=== PATIENT | female | born 1970 | race Caucasian/White ===

== ENCOUNTER → 2019-07-24 11:20 | Outpatient (BNVA) | payer OTHER, SELFPAY | PROVIDERS: Family Provider Family Medicine; PCP Family Medicine; Visit Provider Nurse Practitioner | DX: R05 Cough (principal); R06.02 Shortness of breath | CPT/HCPCS: 71046 ==

== ENCOUNTER → 2019-08-04 13:34 | Outpatient (BNVA) | payer OTHER, SELFPAY | PROVIDERS: Family Provider Family Medicine; PCP Family Medicine; Referring Provider Family Medicine; Visit Provider Family Medicine | DX: J44.1 Chronic obstructive pulmonary disease with (acute) exacerbation (principal) | CPT/HCPCS: 87804 ==

== ENCOUNTER 2019-08-06 07:59 | Emergency (ER) | payer OTHER, SELFPAY ==
[2019-08-06] VITALS (9 sets, daily range): BP systolic 129–142; BP diastolic 74–85; PULSE 72–96; RESP 16–29; TEMP 36.4–36.8; O2SAT 91–94; BMI 39.8
--- NOTE | 2019-08-06 08:19 | XRR_ITS ---
PROCEDURE INFORMATION: Exam: XR Chest, 1 View Exam date and time: 08/06/2019 8:22 AM Age: 49 years old Clinical indication: Shortness of breath; Additional info: Cough, chest pain TECHNIQUE: Imaging protocol: XR of the chest Views: 1 view. COMPARISON: CR XR chest 2V insp/exp [id number] 07/24/2019 11:36 AM FINDINGS: Lung volumes are relatively low. There again appears to be mild thickening of bilateral perihilar markings, nonspecific, could indicate inflammation/infection. No significant obscuration of the lateral costophrenic angles is demonstrated. Visualized cardiac silhouette size appears within normal limits. XR/XR chest 1V portable [id number] IMPRESSION: There again appears to be mild thickening of bilateral perihilar markings, nonspecific, could indicate inflammation/infection.
--- NOTE | 2019-08-06 08:21 | ECG_ITS ---
Measurements Intervals [place] Rate: 81 P: 49 MO: 144 QRS: 16 QRSD: 89 T: 62 QT: 376 QTc: 437 SINUS RHYTHM WARNING: DATA QUALITY MAY AFFECT INTERPRETATION Compared to ECG 03/24/2019 12:42:08 Myocardial infarct finding no longer present Electronically Signed On 08-06-2019 11:29:08 VP CLIENT SERVICES by Sterling Trammell M.D. [id number]
--- NOTE | 2019-08-06 08:24 | ED_ITS ---
HPI - SOB/Dyspnea General: Chief Complaint: Shortness of Breath/Dyspnea Stated Complaint: left lung pain Time Seen by Provider: 08/06/19 08:12 Source: patient Mode of arrival: ambulatory Limitations: no limitations History of Present Illness: HPI Narrative: Patient comes in today with complaints of cough congestion for the last 2 weeks. Patient has just completed a round of Levaquin. Patient has also been given 2 doses of dexamethasone IM. Patient does have a history of COPD and previous pain with lung discomfort where she was diagnosed with pleurisy and pneumonia. Patient reports the pain is on her left rib area. Patient appears mildly unwell. Patient does appear in moderate pain. Patient reports not taking the prednisone p.o. due to stomach discomfort, and lack of appetite. Patient does use Spiriva routinely but was only started yesterday on the medication. Patient does not routinely use nebulizer machine or inhalers. Associated symptoms: Reports chest congestion Review of Systems General: Reports: 10 or more systems reviewed and unremarkable except in HPI and below Resp: Reports: shortness of breath (with painful respirations) and chest c ongestion FORMERLY [facility], 1928–1983 ED PFSH: Statuses (acute, chronic, etc) shown below reflect problem list status as previously entered and may not be historically accurate Medical History (Updated 08/06/19 @ 10:09 by JONES Falcon) Depression with anxiety (Acute) Social History (Updated 08/04/19 @ 11:58 by Pilar Durant LPN) Smoking and tobacco status: current every day smoker Alcohol intake: never Physical Exam Const: COMMON NORMALS: no apparent distress and oriented x3 GENERAL APPEARANCE: cooperative HENMT: COMMON NORMALS: normocephalic, external ears normal, EAC's normal, TM's normal bilaterally and external nose normal HEAD & SCALP: normal to inspection and normocephalic FACE & SINUS: normal facial exam NOSE: external nose normal GENERAL EAR: hearing not grossly impaired EXTERNAL EAR: Yes external ears normal EXTERNAL AUDITORY CANAL: EAC's normal TYMPANIC MEMBRANE: TM's normal bilaterally MOUTH: oral and palatal mucosa normal THROAT: posterior oropharynx normal Eye: COMMON NORMALS: PERRL and EOMs intact bilaterally PUPIL: Yes PERRL Neck/C-Spine: COMMON NORMALS: full ROM and no lymphadenopathy Lymph: LYMPHATIC: no lymphedema noted Chest: COMMONS NORMALS: inspection of chest normal and palpation of chest normal Resp: EFFORT & INSPECTION: Yes able to speak in complete sentences, Yes tachypneic, No respiratory distress and No tracheal deviation AUSCULTATION: wheezes and rub present (left posterior) Cardio: COMMON NORMALS: regular rate and regular rhythm RATE: regular rate RHYTHM: regular rhythm GI: COMMON NORMALS: normal to inspection, nondistended, normoactive bowel sounds and non-tender : COMMON NORMALS: Yes no CVA tenderness BLADDER/KIDNEY EXAM: Yes no CVA tenderness Back/Pelvis: COMMON NORMALS: no CVA tenderness and thoracic and lumbar spine normal to inspection Extremity: COMMON NORMALS: normal to inspection GENERAL: No edema Neuro: COMMON NORMALS: oriented x3, moves all extremities and no focal motor deficits Psych: COMMON NORMALS: mental status grossly normal and cooperative Skin: COMMON NORMALS: no rashes or lesions noted GENERAL SKIN EXAM: no rashes or lesions noted Course ED course: 910, patient pain improved some, patient continues to be guarded with movement, d dimer was mildly elevated reviewed with patient and recommended CTA due to patient increased pain, patient agree to evaluation. wjw Vital Signs: Vital signs: Vital Signs Temperature 97.6 F 08/06/19 08:08 Pulse Rate 73 08/06/19 09:00 Respiratory Rate 26 H 08/06/19 09:58 Blood Pressure 142/85 08/06/19 08:08 Pulse Oximetry 93 08/06/19 09:00 MDM - SOB/Dyspnea MDM Narrative: Medical decision making narrative: Patient comes in today for complaints of left chest wall pain. Patient reports history of previous pneumonia and pleurisy in the past. Patient had been treated over the last 2 weeks with Levaquin and a steroid with continuation of cough and congestion. Patient reports that no improvement was noted in the chest wall pain in fact of the last 2 days it seems worse. Patient has not been taking the steroid as prescribed due to nausea. Exam notes a pleural rub in the left posterior area of the lung. Lungs are wheezing throughout. Heart rates regular. No edema in the lower extremities. Vital signs are stable. Differential diagnosis includes pneumonia, PE, bronchitis, COPD, asthma. Chest x-ray noted some bronchial thickening but no specific consolidation and no significant change analyst the last week. Laboratory values were normal except for mild elevation in d-dimer. Due to the elevation d-dimer and chest pain CTA was ordered it showed some lymph nodes and bronchial inflammation. Patient was treated in the ER with steroids, IV fluids, and nebulizer treatment. Patient was also given medication for pain. Patient had some improvement with overall symptoms and oxygen did stay above 92%. Reviewed plan with patient to continue on oral steroids at a higher dose o f 20 mg twice a day for the next 4 days and then decrease it to 20 mg daily for 4 days and then 10 mg daily for 4 days. Patient was recommended to take doxycycline to cover for mycoplasma type infections that may not of been covered as well with the Levaquin. Patient was also given medication for pain and an albuterol inhaler for wheezing. Patient reported understanding of care plan and need for follow-up or return as needed. Lab Data: Labs: Lab Results 08/06/19 08/06/19 08/06/19 Range/Units 08:23 08:23 08:23 WBC 8.0 (4.0-10.0) 10^3/ uL RBC 5.21 (4.1-5.3) 10^6/u L Hgb 15.1 (11.5-15.3) g/dL Hct 45.8 (37.0-47.0) % MCV 87.9 (81-99) fL MCH 29.0 (28.0-34.0) pg MCHC 33.0 (30.0-36.0) g/dL RDW 13.4 (12.1-15.1) % Plt Count 232 (130-400) 10^3/c mm MPV 9.4 (7.4-10.4) fL Neut % (Auto) 66.0 % Lymph % (Auto) 27.3 % Dixie % (Auto) 6.1 % Eos % (Auto) 0.2 % Baso % (Auto) 0.2 % Neut # (Auto) 5.3 (1.8-7.7) 10^3/u L Lymph # (Auto) 2.2 (0.8-4.8) 10^3/u L Dixie # (Auto) 0.5 (0.2-0.9) 10^3/u L Eos # (Auto) 0.0 (0.0-0.8) 10^3/u L Baso # (Auto) 0.0 (0.0-0.1) 10^3/u L Nucleated RBC % (a uto) 0 % Nucleated RBCs # 0.0 /100WBC D-Dimer 0.68 H (0-0.59) ug/mIFE U Specimen Type Sample Site ABG pH (7.35-7.45) ABG pCO2 (35-45) mmHg ABG pO2 (80.0-100.0) mmH g ABG HCO3 (22-26) mmol/L ABG Base Excess (-2.0-2.0) mmol/ L Ady Test Hematocrit (37-47) % Pipeline Integrity Engineer ID Sodium 141 (136-145) mmol/L Potassium 3.2 L (3.5-5.1) mmol/L Chloride 100 (98-107) mmol/L Carbon Dioxide 27 (22-29) mmol/L Anion Gap 17.2 (5-19) BUN 12 (6-20) mg/dL Creatinine 0.7 (0.5-0.9) mg/dL GFR Calculation 88.2 L (90-130) mL/min Glucose 116 H (74-109) mg/dL Lactic Acid (0.5-2.2) mmol/L Calcium 9.8 (8.6-10.0) mg/Dl Total Bilirubin 0.4 (0.15-1.2) mg/dL AST 24 (0-32) U/L ALT 32 (0-33) U/L Alkaline Phosphata se 101 (35-105) IU/L Troponin T Baselin e (0-10) ng/mL Total Protein 7.3 (6.6-8.7) g/dL Albumin 4.5 (3.5-5.2) g/dL Globulin 2.8 (1.3-4.6) g/dL 08/06/19 08/06/19 08/06/19 Range/Units 08:23 08:23 09:00 WBC (4.0-10.0) 10^3/ uL RBC (4.1-5.3) 10^6/u L Hgb (11.5-15.3) g/dL Hct (37.0-47.0) % MCV (81-99) fL MCH (28.0-34.0) pg MCHC (30.0-36.0) g/dL RDW (12.1-15.1) % Plt Count (130-400) 10^3/c mm MPV (7.4-10.4) fL Neut % (Auto) % Lymph % (Auto) % Dixie % (Auto) % Eos % (Auto) % Baso % (Auto) % Neut # (Auto) (1.8-7.7) 10^3/u L Lymph # (Auto) (0.8-4.8) 10^3/u L Dixie # (Auto) (0.2-0.9) 10^3/u L Eos # (Auto) (0.0-0.8) 10^3/u L Baso # (Auto) (0.0-0.1) 10^3/u L Nucleated RBC % (a uto) % Nucleated RBCs # /100WBC D-Dimer (0-0.59) ug/mIFE U Specimen Type Arterial Sample Site Radial, left ABG pH 7.49 H (7.35-7.45) ABG pCO2 34.1 L (35-45) mmHg ABG pO2 50.5 L (80.0-100.0) mmH g ABG HCO3 25.8 (22-26) mmol/L ABG Base Excess 2.9 H (-2.0-2.0) mmol/ L Ady Test Pos Hematocrit 46.7 (37-47) % Pipeline Integrity Engineer ID jmn Sodium (136-145) mmol/L Potassium (3.5-5.1) mmol/L Chloride (98-107) mmol/L Carbon Dioxide (22-29) mmol/L Anion Gap (5-19) BUN (6-20) mg/dL Creatinine (0.5-0.9) mg/dL GFR Calculation (90-130) mL/min Glucose (74-109) mg/dL Lactic Acid 2.0 (0.5-2.2) mmol/L Calcium (8.6-10.0) mg/Dl Total Bilirubin (0.15-1.2) mg/dL AST (0-32) U/L ALT (0-33) U/L Alkaline Phosphata se (35-105) IU/L Troponin T Baselin e 9 (0-10) ng/mL Total Protein (6.6-8.7) g/dL Albumin (3.5-5.2) g/dL Globulin (1.3-4.6) g/dL EKG Data^: EKG 1: Attestation: I personally reviewed and interpreted this EKG as follows: (0835, Sinus rhythm, artifact present, no ectopy, no ST elevation, rate regular @ 80 bpm. wjw) EKG 2: Attestation: I personally reviewed and interpreted this EKG as follows: (1015, NSR, good tracing, rate 81 bpm and regular, no ectopy or ST elevation. wjw) Discharge Plan Discharge Patient Disposition: Home, Self-Care Clinical Impression: Pleurisy Condition: Stable Prescriptions: New doxycycline hyclate 100 mg capsule 100 mg PO BID 10 Days Qty: 20 RF: 0 hydrocodone-acetaminophen 5-325 mg tablet 1 tab PO Q6H PRN (Reason: pain) Qty: 12 RF: 0 prednisone 20 mg tablet 20 mg PO DAILY Qty: 14 RF: 0 albuterol sulfate 90 mcg/actuation HFA aerosol inhaler 2 inh INHALATION Q4H PRN (Reason: shortness of breath or wheezing) Qty: 8.5 RF: 0 ondansetron HCl 4 mg tablet 4 mg PO Q8H PRN (Reason: nausea and vomiting) Qty: 7 RF: 0 No Action prednisone 10 mg tablet 10 mg PO BID RF: 0 ibuprofen 800 mg tablet 800 mg PO TID PRNRF: 0 rosuvastatin 5 mg tablet 5 mg PO ONCE RF: 0 aspirin [Adult Aspirin Regimen] 81 mg tablet,delayed release (DR/EC) 81 mg PO QAM RF: 0 atenolol 50 mg tablet 50 mg PO QAM RF: 0 malini gel INJECTION RF: 0 venlafaxine [Effexor XR] 75 mg capsule,extended release 24hr 75 mg PO QAM RF: 0 acyclovir [Zovirax] 5 % cream 1 applic TOPICAL QID PRNRF: 0 amlodipine 5 mg tablet 5 mg PO QAM RF: 0 pantoprazole [Protonix] 40 mg tablet,delayed release (DR/EC) 40 mg PO ONCE RF: 0 levothyroxine 50 mcg tablet 50 mcg PO ONCE RF: 0 nitroglycerin [Nitrostat] 0.4 mg tablet, sublingual 0.4 mg SUBLINGUAL Q5M PRNRF: 0 Spiriva with HandiHaler 18 mcg capsule, w/inhalation device 1 cap INHALATION QDAY 30 Days Qty: 30 RF: 3 alprazolam 0.5 mg tablet 0.5 mg PO BID PRN (Reason: anxiety) 30 Days Qty: 40 RF: 3 Referrals: Cathy Vickers MD [Primary Care Provider] - Discharge Diet: Usual diet Discharge Activity: Increase activity as tolerated Patient Instructions: Pleurisy (ED) Activity Restrictions/Additional Instructions: Drink plenty of water Take medications as directed, especially prednisone and antibiotic Use inhaler every 4 hours as directed for the next two to three days Follow-up with primary care in three days Return to ER for increasing shortness of breath or new concerns Coding Level of Care Code ED Principal Network Engineer 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
[2019-08-06 08:34] LABS: Basophils % 0.2 %; Eosinophils % 0.2 %; Hematocrit 45.8 % (37.0-47.0); Hemoglobin 15.1 g/dL (11.5-15.3); Lymphocytes # 2.2 10^3/uL (0.8-4.8); Lymphocytes % 27.3 %; Mean Corpuscular Volume 87.9 fL (81-99); Mean Platelet Volume 9.4 fL (7.4-10.4); Monocytes # 0.5 10^3/uL (0.2-0.9); Monocytes % 6.1 %; Neutrophils # 5.3 10^3/uL (1.8-7.7); Nucleated Red Blood Cells % 0 %; Platelet Count 232 10^3/cmm (130-400); Red Blood Count 5.21 10^6/uL (4.1-5.3); Red Cell Distribution Width 13.4 % (12.1-15.1)
[2019-08-06] MEDS: morphine 4 mg/mL SDV 1 mL 2 MG IVP ×2 (08:38→09:58)
[2019-08-06] MEDS: sodium chloride 0.9% 500 ML 999 ML IV (08:39)
[2019-08-06 08:50] LABS: D Dimer 0.68 ug/mIFEU (0-0.59); Troponin(5th) Baseline 9 ng/mL (0-10)
[2019-08-06 08:51] LABS: Alanine Aminotransferase 32 U/L (0-33); Albumin Level 4.5 g/dL (3.5-5.2); Alkaline Phosphatase 101 IU/L (35-105); Anion Gap 17.2 (5-19); Aspartate Amino Transferase 24 U/L (0-32); Blood Urea Nitrogen 12 mg/dL (6-20); Calcium 9.8 mg/Dl (8.6-10.0); Carbon Dioxide 27 mmol/L (22-29); Chloride 100 mmol/L (98-107); Globulin 2.8 g/dL (1.3-4.6); Glomerular Filtration Rate 88.2 mL/min (90-130); Glucose 116 mg/dL (74-109); Potassium 3.2 mmol/L (3.5-5.1); Sodium 141 mmol/L (136-145); Total Bilirubin 0.4 mg/dL (0.15-1.2); Total Protein 7.3 g/dL (6.6-8.7)
[2019-08-06] MEDS: ipratropium-albuterol 3 mL Neb INHALATION ×2 (08:51→10:56)
[2019-08-06 09:01] LABS: Slide Review Slide Review Perform
--- NOTE | 2019-08-06 09:05 | CTR_ITS ---
PROCEDURE INFORMATION: Exam: CT Angiography Chest With Contrast Exam date and time: 08/06/2019 9:10 AM Age: 49 years old Clinical indication: Shortness of breath; Additional info: Chest pain, elevated d-dimer TECHNIQUE: Imaging protocol: Computed tomographic angiography of the chest with intravenous contrast. 3D rendering: MIP and/or 3D reconstructed images were created by the technologist. Total DLP: 1108.5 mGy-cm Radiation optimization: All CT scans at this facility use at least one of these dose optimization techniques: automated exposure control; mA and/or kV adjustment per patient size (includes targeted exams where dose is matched to clinical indication); or iterative reconstruction. Contrast material: OMNIPAQUE 350; Contrast volume: 95 ml; Contrast route: IV COMPARISON: None available FINDINGS: Main pulmonary artery and right/left pulmonary arteries (and their visualized branches) demonstrate no convincing filling defects to suggest the presence of pulmonary emboli. There is moderate reticulonodular pattern of opacification in left lower lobe and mild in right mid lung zone anteriorly lung, most compatible with inflammation/infection, perhaps atypical etiology. Lungs demonstrate no pleural effusion. Heart size appears within normal limits. No significant pericardial fluid is demonstrated. Thoracic aorta does not appear dilated. Mediastinum and belen demonstrate small to mildly enlarged lymph nodes, likely reactive in nature. There is evidence for old granulomatous disease. Partly demonstrated is retroaortic left renal vein. There are degenerative changes in the thoracic spine. CT/CT angio chest PE protcl [id number] IMPRESSION: There is moderate reticulonodular pattern of opacification in left lower lobe and mild in right mid lung zone anteriorly lung, most compatible with inflammation/infection, perhaps atypical etiology. Imaging follow-up to complete resolution is advised. Radiation Dose CTDIVOL = (mGy): DLP = 1108.5 (mGy-cm)
[2019-08-06 09:11] LABS: ABG PCO2 34.1 mmHg (35-45); ABG PH Result 7.49 (7.35-7.45); Arterial Blood Gas Hematocrit 46.7 % (37-47); Base Excess ABG 2.9 mmol/L (-2.0-2.0); Blood Gas Allen Test Pos; Blood Gas Sample Site Radial, left; Blood Gas Sample Type Arterial; HCO3 ABG 25.8 mmol/L (22-26); PO2 ABG 50.5 mmHg (80.0-100.0)
[2019-08-06] MEDS: iohexol 350 mg/mL 100 mL Btl IV (09:29)
--- NOTE | 2019-08-06 10:21 | ECG_ITS ---
Measurements Intervals [place] Rate: 80 P: 33 IL: 146 QRS: 2 QRSD: 100 T: 46 QT: 364 QTc: 422 SINUS RHYTHM POSSIBLE ANTERIOR MYOCARDIAL INFARCTION , OF INDETERMINATE AGE [30 ms Q WAVE IN V3/V4, OR R < 0.2 mV IN V4] Compared to ECG 03/24/2019 12:42:08 No significant changes Electronically Signed On 08-06-2019 11:33:54 PRECONSTRUCTION MANAGER by Sterling Trammell M.D. [email or web address]
== END 2019-08-06 11:12 | disposition home or self-care (01) ==
PROVIDERS: Emergency Provider Nurse Practitioner Family; Family Provider Family Medicine; PCP Family Medicine
DX: R09.1 Pleurisy (principal); Z79.82 Long term (current) use of aspirin; F17.210 Nicotine dependence, cigarettes, uncomplicated
CPT/HCPCS: 36415; 36600; 71045; 71275; 80053; 82803; 83605; 84484; 85025; 85378; 87040; 93005; 94640; 96360; 96374; 99283; J2270; J2930; J7040; Q9967

== ENCOUNTER → 2019-09-05 09:55 | Outpatient (BNVA) | payer OTHER, SELFPAY | PROVIDERS: Family Provider Family Medicine; PCP Family Medicine; Visit Provider Orthopaedic Surgery | DX: R29.898 Other symptoms and signs involving the musculoskeletal system (principal); M77.31 Calcaneal spur, right foot; M79.604 Pain in right leg | CPT/HCPCS: 73590 ==

== ENCOUNTER 2019-09-07 15:47 | Outpatient (CLI) | payer OTHER, SELFPAY ==
--- NOTE | 2019-09-07 15:57 | MR_ITS ---
WS: [id number] MRI RIGHT lower extremity. HISTORY: Chronic RIGHT posterior leg pain. Multiplanar, multisequence imaging is performed. Marker is placed over the area of pain. There is no underlying soft tissue mass or edema. Muscle are normally developed. No atrophy. The underlying bone is normal. There is some subcutaneous soft tissue edema but this is more diffuse throughout the lower extremity. MR/MR lower leg RT wo con* [id number] IMPRESSION: Negative MRI RIGHT lower extremity. No muscle edema or atrophy. No bone abnorma lity.
== END 2019-09-07 15:48 | disposition home or self-care (01) ==
LOC: RADWPI 15:56
PROVIDERS: Family Provider Family Medicine; PCP Family Medicine; Visit Provider Orthopaedic Surgery
DX: M79.661 Pain in right lower leg (principal)
CPT/HCPCS: 73718

== ENCOUNTER → 2019-09-08 13:00 | Outpatient (BNVA) | payer OTHER, SELFPAY | PROVIDERS: Family Provider Family Medicine; PCP Family Medicine; Visit Provider Orthopaedic Surgery | DX: R29.898 Other symptoms and signs involving the musculoskeletal system (principal); F17.200 Nicotine dependence, unspecified, uncomplicated; M79.604 Pain in right leg | CPT/HCPCS: 80053; 85025; 85651; 86225; 86235; 86431 ==

== ENCOUNTER 2019-09-26 15:06 | Inpatient (IN) | payer OTHER, SELFPAY ==
[2019-09-26] VITALS (8 sets, daily range): BP systolic 111–145; BP diastolic 71–78; PULSE 82–117; RESP 18–24; TEMP 36.8–37.3; O2SAT 84–96; BMI 41.0
--- NOTE | 2019-09-26 15:17 | XRR_ITS ---
PROCEDURE INFORMATION: Exam: XR Chest, 1 View Exam date and time: 09/26/2019 3:39 PM Age: 49 years old Clinical indication: Cough; Additional info: Cough/congestion x 3 days TECHNIQUE: Imaging protocol: XR of the chest Views: 1 view. COMPARISON: CR XR chest 1V portable [id number] 08/06/2019 8:20 AM FINDINGS: Lungs: There is medial left basilar volume loss, scarring versus mild pneumonitis. Central vessels are mildly engorged with cephalization of flow in trace interstitial edema. Pleural space: Unremarkable. No pleural effusion. No pneumothorax. Heart/Mediastinum: The heart is enlarged. Bones/joints: No acute abnormality. XR/XR chest 1V portable [id number] IMPRESSION: There is medial left basilar volume loss, scarring versus mild pneumonitis.
[2019-09-26 16:57] LABS: Basophils % 0.3 %; Eosinophils # 0.1 10^3/uL (0.0-0.8); Eosinophils % 0.8 %; Hematocrit 51.1 % (37.0-47.0); Hemoglobin 16.9 g/dL (11.5-15.3); Lymphocytes # 2.2 10^3/uL (0.8-4.8); Lymphocytes % 23.6 %; Mean Corpuscular HGB Conc 33.1 g/dL (30.0-36.0); Mean Corpuscular Hemoglobin 30.2 pg (28.0-34.0); Mean Corpuscular Volume 91.3 fL (81-99); Mean Platelet Volume 9.8 fL (7.4-10.4); Monocytes % 10.8 %; Neutrophils # 5.9 10^3/uL (1.8-7.7); Neutrophils % 64.1 %; Nucleated Red Blood Cells % 0 %; Platelet Count 241 10^3/cmm (130-400); Red Cell Distribution Width 12.9 % (12.1-15.1); White Blood Count 9.2 10^3/uL (4.0-10.0)
--- NOTE | 2019-09-26 17:57 | ED_ITS ---
Entered by Taylor Bledsoe, acting as scribe for Regan Ennis MD Sep 26, 2019 15:06 HPI - SOB/Dyspnea General: Chief Complaint: Shortness of Breath/Dyspnea Stated Complaint: O2 is low, fever, sob Time Seen by Provider: 09/26/19 17:56 Source: patient and family Mode of arrival: ambulatory Limitations: no limitations History of Present Illness: HPI Narrative: 49-year-old female states she has been having a fever for the last 2 days. Patient also states she has been having shortness of breath and a cough. She states her oxygen saturations were low at home. She denies any worsening or improving factors. MD elicited complaint: shortness of breath and cough Onset (ago): day(s) Context: recent illness Timing: constant and progressively worsening Severity: mild Exacerbating factors: coughing and other (fever, increased fatigue and sleeping.) Relieving factors: nothing Associated symptoms: Reports cough and fever(s); Deny abdominal pain, chest pain, nausea or vomiting Treatment prior to arrival: none Related Data: Home oxygen amount: none Review of Systems Const: Reports: fever Eyes: Denies: blurry vision or eye discomfort ENMT: Denies: throat pain or dental pain Card: Denies: chest pain GI: Denies: abdominal pain, nausea, vomiting or diarrhea : Denies: painful urination Musc: Denies: neck pain or back pain Skin/Breast: Denies: rash Neuro: Denies: headache Psych: Denies: depression Robert/Lymph: Denies: easy bruising All/Imm: Denies: hives PFSH ED PFSH: Medical History COPD (chronic obstructive pulmonary disease) Coronary artery disease 10/2015: History of [place]. History of posterior inferior wall [place] without obstructive coronary artery disease or small vessel disease with spasm induced coronary ischemia. Depression with anxiety Essential hypertension Gastroesophageal reflux History of DVT (deep vein thrombosis) Hyperlipidemia Hypothyroidism Menopause Not a candidate for HRT due to history of DVT. Vaginal polyp Vaginal polyp Surgical History H/O carpal tunnel repair (~2017) Right History of arthroscopic knee surgery (06/10/17) Left. [place] [facility] [place] of cholecystectomy (09/03/14) Laparoscopic. [place]. Garcia [place] [facility]. History of total hysterectomy (01/13/17) MELANY BETTS.Dx: DUB. [place] Dr. Colmenares [place] [facility]. History of tubal ligation (~11/1993) Family History Father Hypertension Grandmother Hypertension Maternal Diabetes Maternal Heart disease Maternal Stroke Maternal Hypothyroidism Maternal Mother Hypothyroidism Grandmother Breast cancer Paternal Ovarian cancer Paternal Other Hypercholesterolemia Social History Smoking and tobacco status: current every day smoker cigarettes Packs smoked per day: 1 Years cigarettes smoked: 35 Quit status (tobacco): not considering quitting Smoking risk assessment/counseling performed?: Yes Alcohol intake: never Current occupational status: employed History of recent travel: No Current gender identity: Female Physical Exam Const: COMMON NORMALS: no apparent distress, oriented x3 and healthy appearing HENMT: COMMON NORMALS: normocephalic and head/scalp atraumatic HEAD & SCALP: normocephalic and atraumatic Eye: COMMON NORMALS: PERRL and EOMs intact bilaterally PUPIL: Yes PERRL Neck/C-Spine: COMMON NORMALS: full ROM and supple Chest: COMMONS NORMALS: inspection of chest normal and palpation of chest normal Cardio: COMMON NORMALS: regular rate, regular rhythm and no murmurs RATE: regular rate RHYTHM: regular rhythm GI: COMMON NORMALS: normal to inspection, nondistended, normoactive bowel sounds, soft to palpation, non-tender and no masses PALPATION: Yes soft Extremity: COMMON NORMALS: normal to inspection and full ROM Neuro: COMMON NORMALS: oriented x3, moves all extremities and no focal motor deficits Psych: COMMON NORMALS: mental status grossly normal, thought process normal and cooperative THOUGHT PROCESS: normal thought process Skin: COMMON NORMALS: no rashes or lesions noted and no wounds GENERAL SKIN EXAM: no rashes or lesions noted Course Vital Signs: Vital signs: Vital Signs Temperature 98.2 F 09/26/19 21:38 Pulse Rate 108 H 09/26/19 21:38 Respiratory Rate 24 H 09/26/19 21:38 Blood Pressure 115/78 09/26/19 21:38 Pulse Oximetry 90 09/26/19 21:38 MDM - SOB/Dyspnea MDM Narrative: Medical decision making narrative: Patient presents here with a likely pneumonia. Patient is continued to be hypoxic here even after breathing treatments. She has been requiring 2 to 3 L of oxygen. We will start her on antibiotics for community-acquired pneumonia I spoke to hospitalist will admit. She has no signs of pulmonary embolism here. This does not appear to be cardiac in nature. Lab Data: Labs: Lab Results 09/26/19 09/26/19 09/26/19 Range/Units 16:40 16:40 18:39 WBC 9.2 (4.0-10.0) 10^3/ uL RBC 5.60 H (4.1-5.3) 10^6/u L Hgb 16.9 H (11.5-15.3) g/dL Hct 51.1 H (37.0-47.0) % MCV 91.3 (81-99) fL MCH 30.2 (28.0-34.0) pg MCHC 33.1 (30.0-36.0) g/dL RDW 12.9 (12.1-15.1) % Plt Count 241 (130-400) 10^3/c mm MPV 9.8 (7.4-10.4) fL Neut % (Auto) 64.1 % Lymph % (Auto) 23.6 % [place] % (Auto) 10.8 % Eos % (Auto) 0.8 % Baso % (Auto) 0.3 % Neut # (Auto) 5.9 (1.8-7.7) 10^3/u L Lymph # (Auto) 2.2 (0.8-4.8) 10^3/u L [place] # (Auto) 1.0 H (0.2-0.9) 10^3/u L Eos # (Auto) 0.1 (0.0-0.8) 10^3/u L Baso # (Auto) 0.0 (0.0-0.1) 10^3/u L Nucleated RBC % (a uto) 0 % Nucleated RBCs # 0.0 /100WBC D-Dimer 0.63 H (0-0.59) ug/mIFE U Specimen Type Sample Site ABG pH (7.35-7.45) ABG pCO2 (35-45) mmHg ABG pO2 (80.0-100.0) mmH g ABG HCO3 (22-26) mmol/L ABG Base Excess (-2.0-2.0) mmol/ L Ady Test Hematocrit (37-47) % O2 Delivery Device O2 Liters/Min % Tile Setter Apprentice ID Sodium (136-145) mmol/L Potassium (3.5-5.1) mmol/L Chloride (98-107) mmol/L Carbon Dioxide (22-29) mmol/L Anion Gap (5-19) BUN (6-20) mg/dL Creatinine (0.5-0.9) mg/dL GFR Calculation (90-130) mL/min Glucose (65-115) mg/dL Calculated Osmolal ity (285-295) mOsm/k g Calcium (8.5-10.5) mg/dL Total Bilirubin (0.15-1.2) mg/dL AST (0-32) U/L ALT (0-33) U/L Alkaline Phosphata se (35-105) IU/L Total Protein (6.6-8.7) g/dL Albumin (3.5-5.2) g/dL Globulin (1.3-4.6) g/dL Influenza Type A A g Negative (Negative) POC Influenza B Ag Negative (Negative) 09/26/19 09/26/19 Range/Units 18:40 19:39 WBC (4.0-10.0) 10^3/ uL RBC (4.1-5.3) 10^6/u L Hgb (11.5-15.3) g/dL Hct (37.0-47.0) % MCV (81-99) fL MCH (28.0-34.0) pg MCHC (30.0-36.0) g/dL RDW (12.1-15.1) % Plt Count (130-400) 10^3/c mm MPV (7.4-10.4) fL Neut % (Auto) % Lymph % (Auto) % [place] % (Auto) % Eos % (Auto) % Baso % (Auto) % Neut # (Auto) (1.8-7.7) 10^3/u L Lymph # (Auto) (0.8-4.8) 10^3/u L [place] # (Auto) (0.2-0.9) 10^3/u L Eos # (Auto) (0.0-0.8) 10^3/u L Baso # (Auto) (0.0-0.1) 10^3/u L Nucleated RBC % (a uto) % Nucleated RBCs # /100WBC D-Dimer (0-0.59) ug/mIFE U Specimen Type Arterial Sample Site Radial, right ABG pH 7.49 H (7.35-7.45) ABG pCO2 37.9 (35-45) mmHg ABG pO2 84.4 (80.0-100.0) mmH g ABG HCO3 28.9 H (22-26) mmol/L ABG Base Excess 5.3 H (-2.0-2.0) mmol/ L Ady Test Pos Hematocrit 48.9 H (37-47) % O2 Delivery Device Nc O2 Liters/Min 3.0 % Tile Setter Apprentice ID [email or web address] Sodium 139 (136-145) mmol/L Potassium 3.0 L (3.5-5.1) mmol/L Chloride 97 L (98-107) mmol/L Carbon Dioxide 27 (22-29) mmol/L Anion Gap 18.0 (5-19) BUN 13 (6-20) mg/dL Creatinine 0.8 (0.5-0.9) mg/dL GFR Calculation 75.6 L (90-130) mL/min Glucose 140 H (65-115) mg/dL Calculated Osmolal ity 286 (285-295) mOsm/k g Calcium 9.5 (8.5-10.5) mg/dL Total Bilirubin 0.4 (0.15-1.2) mg/dL AST 45 H (0-32) U/L ALT 39 H (0-33) U/L Alkaline Phosphata se 93 (35-105) IU/L Total Protein 7.0 (6.6-8.7) g/dL Albumin 4.3 (3.5-5.2) g/dL Globulin 2.7 (1.3-4.6) g/dL Influenza Type A A g (Negative) POC Influenza B Ag (Negative) Imaging Data^: CXR: My impression: right sided pneumonia Discharge Plan Discharge Patient Disposition: Admitted As Inpatient Admit Provider: Juan Carroll Clinical Impression: Community acquired pneumonia Qualifiers: Laterality: right Lung location: unspecified part of lung Qualified Code(s): J18.9 - Pneumonia, unspecified organism Condition: Stable Interventions: ED Discharge Assessment Last Done: 09/26/19 21:14 Discharge Date/Time: 09/26/19 21:14 Coding Level of Care Code ED Vacuum Frame Operator for Chg Fwd Exam Comprehensive The documentation recorded by the Rakan calvillo Bridget Annette, accurately reflects the service I personally performed and the decisions made by Loli mora Korby, MD Sep 26, 2019 15:06
[2019-09-26] MEDS: predniSONE 20 mg Tablet 60 MG PO (19:01)
--- NOTE | 2019-09-26 19:06 | PC.NURSE ---
denies any needs at this time
[2019-09-26] MEDS: ipratropium-albuterol 3 mL Neb INHALATION (19:10)
[2019-09-26 19:25] LABS: Influenza A by IFA Negative (Negative); Influenza B by IFA Negative (Negative)
[2019-09-26 19:27] LABS: Alanine Aminotransferase 39 U/L (0-33); Albumin Level 4.3 g/dL (3.5-5.2); Alkaline Phosphatase 93 IU/L (35-105); Aspartate Amino Transferase 45 U/L (0-32); Blood Urea Nitrogen 13 mg/dL (6-20); Calcium 9.5 mg/dL (8.5-10.5); Carbon Dioxide 27 mmol/L (22-29); Chloride 97 mmol/L (98-107); Globulin 2.7 g/dL (1.3-4.6); Glomerular Filtration Rate 75.6 mL/min (90-130); Glucose 140 mg/dL (65-115); Osmolality Calculated 286 mOsm/kg (285-295); Sodium 139 mmol/L (136-145); Total Bilirubin 0.4 mg/dL (0.15-1.2)
[2019-09-26 19:40] LABS: ABG PCO2 37.9 mmHg (35-45); ABG PH Result 7.49 (7.35-7.45); Arterial Blood Gas Hematocrit 48.9 % (37-47); Base Excess ABG 5.3 mmol/L (-2.0-2.0); Blood Gas Allen Test Pos; Blood Gas Sample Site Radial, right; Blood Gas Sample Type Arterial; HCO3 ABG 28.9 mmol/L (22-26); Oxygen Device NC; PO2 ABG 84.4 mmHg (80.0-100.0)
[2019-09-26] MEDS: LORazepam 2 mg/mL INJ 1 mL 1 MG IVP (19:59)
[2019-09-26] MEDS: cefTRIAXone 1,000 MG in sodium chloride 0.9% (plus) 50 ML 100 MG IV (20:00)
--- NOTE | 2019-09-26 20:26 | P.HP_ITS ---
Providers/Chief Complaint Primary Care Provider: Cathy Vickers MD Chief Complaint: O2 is low, fever, sob History of Present Illness Mili Davidson is a 49 year old female with class D COPD, bronchiolitis, chronic steroid use for knee pain, depression, active smoker, came in with chief complaint of fever, shortness of breath and lethargy. 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 Patient is smoking 1 pack/day, she has been exposed to grandkids who were suffering from flu, no domestic international travel, no re cent diarrhea, chest pain, orthopnea or PND but she snores a lot as per the daughter and feels very groggy and experiences headache in the morning. She has seen online merchandising specialist Dr. Brandt as well who prescribed a long-acting muscarinic antagonist. Diagnostics in ER revealed sepsis secondary to pneumonia She was treated with ceftriaxone and azithromycin She was hypoxic on room air, treated nasal cannula saturation was 98% ABG was reviewed, flu panel negative Review of Systems Const: Reports: fever, chills, body aches, fatigue and malaise Eyes: Denies: change in vision ENMT: Denies: throat pain Card: Denies: chest pain Resp: Reports: shortness of breath and non-productive cough; Denies: change in phlegm color or chest congestion GI: Denies: abdominal pain, nausea or coffee grounds in vomit : Denies: flank pain or urinary frequency Musc: Denies: neck pain Skin/Breast: Denies: rash Neuro: Denies: headache Psych: Reports: anxiety Endo: Denies: excessive urination Robert/Lymph: Denies: easy bleeding All/Imm: Denies: hives Medications/Allergies Home Medications Medication Instructions Recorded Confirmed Last Taken Type calcium carb-mag oxide-zinc ox 1 tab PO DAILY 09/26/19 09/26/19 Unknown History diclofenac sodium [Voltaren] 2 gm TOPICAL BID PRN 09/26/19 09/26/19 Unknown H istory prednisone See Rx Instructions .ROUTE .COMPLEX 09/26/19 09/26/19 09/23/19 History Allergies Allergy/AdvReac Type Severity Reaction Status Date / Time No Known Allergies Allergy Verified 09/22/19 15:47 PFSH Acute PFSH: Medical History COPD (chronic obstructive pulmonary disease) Coronary artery disease 10/2015: History of [place]. History of posterior inferior wall [place] without obstructive coronary artery disease or small vessel disease with spasm induced coronary ischemia. Depression with anxiety Essential hypertension Gastroesophageal reflux History of DVT (deep vein thrombosis) Hyperlipidemia Hypothyroidism Menopause Not a candidate for HRT due to history of DVT. Vaginal polyp Vaginal polyp Surgical History H/O carpal tunnel repair (~2017) Right History of arthroscopic knee surgery (06/10/17) Left. Performed by Dr. Roblero at [facility] [place]. History of cholecystectomy (09/03/14) Laparoscopic. Performed by Dr. Garcia at [facility] [place]. History of total hysterectomy (01/13/17) MELANY BETTS.Dx: DUB. Performed by Dr. Colmenares at [facility] [place]. History of tubal ligation (~11/1993) Family History Father Hypertension Grandmother Hypertension Maternal Diabetes Maternal Heart disease Maternal Stroke Maternal Hypothyroidism Maternal Mother Hypothyroidism Grandmother Breast cancer Paternal Ovarian cancer Paternal Other Hypercholesterolemia Social History Smoking and tobacco status: current every day smoker cigarettes Packs smoked per day: 1 Years cigarettes smoked: 35 Quit status (tobacco): not considering quitting Smoking risk assessment/counseling performed?: Yes Alcohol intake: never Current occupational status: employed History of recent travel: No Current gender identity: Female Vitals/I&O/Wt Last Vital Signs Temp 99.2 F 09/26/19 15:13 Pulse 117 H 09/26/19 19:45 Resp 20 H 09/26/19 19:42 BP 145/71 09/26/19 15:13 Pulse Ox 95 09/26/19 19:42 Weight last 48 hrs Weight 108.409 kg Physical Exam Narrative: EXAM NARRATIVE: This is a morbidly obese female Saturating well on 3 L nasal cannula She seems very drowsy however awake alert oriented x3 GCS 15 Daughter is at the bedside Bilateral breath sounds with diminished bases without adventitious sounds No respiratory distress S1, S2 no signs of heart failure murmur Abdomen soft nontender nondistended Skin does not show any sign of ischemia gangrene or ulcer Data : 09/26/19 16:40 09/26/19 18:40 Micro: Microbiology 09/26/19 19:55 Blood Culture - Preliminary Blood SPECIMEN COLLECTED 09/26/19 18:40 Blood Culture - Preliminary Blood SPECIMEN COLLECTED A&P Assessment and plan (1) Community acquired pneumonia: Status: Acute Code(s): J18.9 - Pneumonia, unspecified organism (2) Sepsis: Status: Acute Code(s): A41.9 - Sepsis, unspecified organism (3) Hypoxia: Status: Acute Code(s): R09.02 - Hypoxemia (4) Morbid obesity: Status: Acute Code(s): E66.01 - Morbid (severe) obesity due to excess calories (5) Smoker: Status: Acute Code(s): F17.200 - Nicotine dependence, unspecified, uncomplicated Additional A&P Information Sepsis secondary to pneumonia Community-acquired pneumonia treatment ceftriaxone and azithromycin She has been using steroids for her knee, she has used it for more than 4 weeks, this might have made her prone to development of pneumonia, considering her low pneumonia severity index I will use ceftriaxone and azithromycin for now Blood cultures obtained Sputum culture, urine antigens Sepsis criteria met with, fever, tachycardia, tachypnea She would receive 2 L normal saline Pneumonia severity index class III risk, decision has been made to observe her overnight start antibiotics and monitor for clinical improvement COPD without active exacerbation Currently compensated, active smoker, Has been evaluated by Dr. Brandt He has added long-acting muscarinic antagonist Patient is trying to quit Hypothyroidism: Continue levothyroxine 50 mcg Dyslipidemia: Continue rosuvastatin Depression/anxiety: Venlafaxine 75 mg Active smoker: Patient has reservation against Chantix or nicotine replacement therapies Obstructive sleep apnea: Patient is endorsing morning headaches, bilateral leg swelling, excessive snoring, she has been prescribed hydrochlorothiazide for hypertension and edema of her legs Will get echo in the morning to evaluate for chamber pressures and pulmonary hypertension Full code Regular diet Attestations Medical Necessity Statement*: Anticipating discharge less than 48 hours for community-acquired pneumonia management Time Spent in Patient Care: 50 Coding Level of Care Code Acute Steward/Stewardess Banquet for Keyanna Fwd Diagnoses Community acquired pneumonia J18.9 Sepsis A41.9 Hypoxia R09.02 Morbid obesity E66.01 Smoker F17.200
[2019-09-26] MEDS: azithromycin 500 MG in sodium chloride 0.9% 250 ML 250 MG IV (20:35)
--- NOTE | 2019-09-26 20:45 | PC.NURSE ---
Called report to Ximena on med surg
[2019-09-26 21:31] LABS: D Dimer 0.63 ug/mIFEU (0-0.59)
[2019-09-26] MEDS: enoxaparin 40 mg/0.4 mL Syringe SUBCUT (21:42)
[2019-09-26] MEDS: sodium chloride 0.9% 1,000 ML 75 ML IV (21:42)
[2019-09-26 22:10] LABS: NT Pro B Type Natriuretic Pept 40 pg/mL (0-125)
[2019-09-27] VITALS (8 sets, daily range): BP systolic 92–148; BP diastolic 61–82; PULSE 91–107; RESP 18–97; TEMP 36.5–36.8; O2SAT 92–97
--- NOTE | 2019-09-27 05:31 | CT_ITS ---
WS: [id number] CT CHEST ANGIOGRAPHY WITH REFORMATS HISTORY: R/o PE, hypoxia TECHNIQUE: Contiguous axial images are obtained through the chest during arterial injection of intrav enous contrast. Images are reconstructed to evaluate the pulmonary arteries. MIP imaging also reviewe d. All CT scans at [facility] use at least one of these dose optimization techniques: aut omated exposure control; mA and/or kV adjustment per patient size (includes targeted exams where dose is matched to clinical indication); or iterative reconstruction. CONTRAST: Omnipaque 350; 95 mL IV. DLP: 469.68 mGy.cm COMPARISON: 08/06/2019 Good opacification of the pulmonary arteries. No pulmonary embolism. Normal size pulmonary artery. Mi ld atherosclerosis aorta. No aneurysm or dissection. Heart size is normal. No pericardial or pleural effusions. Mildly hyperinflated lungs. Mild interstitial thickening throughout both lungs. Linear bandlike atele ctasis in the lower lobes bilaterally. Benign calcified granuloma in the RIGHT middle lobe. No pneumo wandy or suspicious nodules. Previously described airspace disease in the LEFT lower lobe has significa ntly improved. Mediastinal and hilar lymphadenopathy. The largest lymph node measures 2.1 cm at the RIGHT hilum. The re are additional smaller lymph nodes at the AP window and in the hilar regions. Subcarinal and preca rinal lymph nodes are also slightly increased in size measuring up to 11 mm. Prior cholecystectomy. Small nodule LEFT adrenal gland is stable. CT/CT angio chest PE protcl [id number] IMPRESSION: 1. No pulmonary embolism. 2. No significant change of the mediastinal and hilar lymphadenopathy. Largest lymph node at the RIGHT hilum measures 2.1 cm. Indeterminate lymph nodes were also present on the prior CT from 08/06/2019 and have slightly improved. Again t hese could be reactive but early neoplastic disease should also be considered a s a possible etiology. 3. Prior cholecystectomy.
[2019-09-27 06:12] LABS: Basophils % 0.3 %; Hematocrit 44.6 % (37.0-47.0); Hemoglobin 14.5 g/dL (11.5-15.3); Lymphocytes % 16.2 %; Mean Corpuscular HGB Conc 32.5 g/dL (30.0-36.0); Mean Corpuscular Hemoglobin 28.7 pg (28.0-34.0); Mean Corpuscular Volume 88.1 fL (81-99); Mean Platelet Volume 9.7 fL (7.4-10.4); Monocytes # 0.4 10^3/uL (0.2-0.9); Monocytes % 6.8 %; Neutrophils # 4.6 10^3/uL (1.8-7.7); Neutrophils % 76.4 %; Nucleated Red Blood Cells % 0 %; Platelet Count 232 10^3/cmm (130-400); Red Blood Count 5.06 10^6/uL (4.1-5.3); Red Cell Distribution Width 12.6 % (12.1-15.1)
[2019-09-27 06:26] LABS: Anion Gap 15.1 (5-19); Blood Urea Nitrogen 15 mg/dL (6-20); Calcium 9.3 mg/dL (8.5-10.5); Carbon Dioxide 28 mmol/L (22-29); Chloride 100 mmol/L (98-107); Glomerular Filtration Rate 105.4 mL/min (90-130); Glucose 197 mg/dL (65-115); Osmolality Calculated 292 mOsm/kg (285-295); Potassium 3.1 mmol/L (3.5-5.1); Sodium 140 mmol/L (136-145)
[2019-09-27] MEDS: iohexol 350 mg/mL 100 mL Btl IV (06:31)
[2019-09-27] MEDS: amlodipine 5 mg Tablet PO (10:25)
[2019-09-27] MEDS: venlafaxine ER (24HR) 75 mg Capsule 150 MG PO (10:25)
[2019-09-27] MEDS: aspirin 81 mg EC Tablet PO (10:25)
[2019-09-27] MEDS: atorvastatin 40 mg Tablet 20 MG PO (10:26)
[2019-09-27] MEDS: predniSONE 20 mg Tablet 40 MG PO (10:26)
[2019-09-27] MEDS: azithromycin 250 mg Tablet PO (10:26)
[2019-09-27] MEDS: levothyroxine 50 mcg Tablet PO (10:26)
[2019-09-27] MEDS: hydroCHLOROthiazide 25 mg Tablet PO (10:26)
--- NOTE | 2019-09-27 12:39 | PC.RESP ---
Pt removed from o2 to check for titration needs. This RT called away for emergency, and as I returned, checked her o2. She was asleep and sats 88%, but came up to 93% as she woke-up. Pt not wearing cpap.
--- NOTE | 2019-09-27 15:08 | PM.PN ---
Subjective Subjective: Interval history: Patient reports feeling slightly better but continues to be very anxious. Reports frequently having anxiety attack and had another attack shortly after my evaluation. Patient was again reevaluated and was found hyperventilating. She reports that she takes Xanax 1 mg at bedtime and 0.5 mg whenever she needs during the daytime. Reports that she has been having significant bilateral lower extremity edema and recently was started on hydrochlorothiazide with improvement. She wants to make sure that I can see her before noon tomorrow so she can go home. Her cough is nonproductive. She denies chest pain. She has been tachycardic but otherwise afebrile. She reports that she was running fever at home. Vitals/I&O/Wt Last Vital Signs Temp 97.7 F 09/27/19 11:27 Pulse 102 H 09/27/19 11:27 Resp 18 09/27/19 11:27 BP 148/82 09/27/19 11:27 Pulse Ox 94 09/27/19 11:27 09/27/19 09/27/19 09/27/19 06:59 14:59 22:59 Intake Total 480 / 1010 1200 / 1200 Balance 480 / 1010 1200 / 1200 Weight last 48 hrs Weight 106.866 kg Weight 108.409 kg Physical Exam Const: COMMON NORMALS: no apparent distress and oriented x3 Resp: COMMON NORMALS: normal respiratory effort and clear to auscultation bilaterally AUSCULTATION: clear to auscultation bilaterally Cardio: COMMON NORMALS: regular rate, regular rhythm and S2 normal heart sound RATE: regular rate RHYTHM: regular rhythm HEART SOUNDS: S2 normal OTHER: No lower extremity edema GI: COMMON NORMALS: normal to inspection, nondistended, normoactive bowel sounds, soft to palpation and non-tender PALPATION: Yes soft Neuro: COMMON NORMALS: oriented x3 and no focal motor deficits Data : 09/27/19 04:49 09/27/19 04:49 Micro: Microbiology 09/26/19 21:50 Legionella Urinary Antigen - Final Urine,Voided Bacterial Antigens - Final 09/26/19 19:55 Blood Culture - Preliminary Blood SPECIMEN COLLECTED 09/26/19 18:40 Blood Culture - Preliminary Blood SPECIMEN COLLECTED A&P Assessment and plan (1) Community acquired pneumonia: Ruled out. Status: Acute Qualifiers: Laterality: right Lung location: unspecified part of lung Qualified Code(s): J18.9 - Pneumonia, unspecified organism Code(s): J18.9 - Pneumonia, unspecified organism (2) Sepsis: Status: Acute Code(s): A41.9 - Sepsis, unspecified organism (3) Hypoxia: Status: Acute Code(s): R09.02 - Hypoxemia (4) Morbid obesity: Status: Acute Code(s): E66.01 - Morbid (severe) obesity due to excess calories (5) Smoker: Status: Acute Code(s): F17.200 - Nicotine dependence, unspecified, uncomplicated (6) Acute bronchitis: Status: Acute Code(s): J20.9 - Acute bronchitis, unspecified (7) Panic attack: Will give patient small dose Ativan and restart Xanax. During my evaluation patient's panic attack gradually improved and she was feeling better. Status: Acute Code(s): F41.0 - Panic disorder [episodic paroxysmal anxiety] Additional A&P Information Sepsis secondary to acute bronchitis Community-acquired pneumonia ruled out. She has been using steroids for her knee, she has used it for more than 4 weeks, this might have made her prone to development of pneumonia, considering her low pneumonia severity index I will use ceftriaxone and azithromycin for now Blood cultures obtained Sputum culture, urine antigens Sepsis criteria met with, fever, tachycardia, tachypnea Will use continuous pulse ox. COPD without active exacerbation Currently compensated, active smoker, Has been evaluated by Dr. Brandt He has added long-acting muscarinic antagonist Had extensive discussion with patient of more than 3 minutes regarding importance of smoking cessation. Patient voiced understanding and reports that it will be very difficult for her to do. She asked me if she can go outside to smoke and I told her that I do not think it is a good idea considering her presenting diagnosis. She agreed to try nicotine patch while inpatient. Hypothyroidism: Continue levothyroxine 50 mcg Dyslipidemia: Continue rosuvastatin. Check hemoglobin A1c. Depression/anxiety: Venlafaxine 75 mg Active smoker: Patient has reservation against Chantix or nicotine replacement therapies Mediastinal lymphadenopathy. Likely reactive as it shows improvement. Patient may require repeat imaging in several months for reevaluation. Obstructive sleep apnea: Patient is endorsing morning headaches, bilateral leg swelling, excessive snoring, she has been prescribed hydrochlorothiazide for hypertension and edema of her legs Will get echo in the morning to evaluate for chamber pressures and pulmonary hypertension Full code Regular diet Attestations Medical Necessity Statement*: Patient with hypoxia due to acute bronchitis requires hospitalization until deemed safe for discharge. Coding Level of Care Code Acute Securities Vault Supervisor for Chg Fwd Diagnoses Community acquired pneumonia J18.9 Laterality: right Lung location: unspecified part of lung Sepsis A41.9 Hypoxia R09.02 Morbid obesity E66.01 Smoker F17.200 Acute bronchitis J20.9 Panic attack F41.0
[2019-09-27] MEDS: LORazepam 2 mg/mL INJ 1 mL 0.25 MG IVP (15:34)
[2019-09-27] MEDS: sodium chloride 0.9% 1,000 ML 75 ML IV (16:29)
[2019-09-27 18:41] LABS: Estmated Average Glucose 123; Hemoglobin A1C 5.9 % (4.0-6.0)
[2019-09-27] MEDS: ALPRAZolam 0.5 mg Tablet PO (19:37)
[2019-09-27] MEDS: enoxaparin 40 mg/0.4 mL Syringe SUBCUT (19:38)
[2019-09-27] MEDS: nicotine 21 mg Patch 1 PATCH TRANSDERMA (19:38)
--- NOTE | 2019-09-27 21:16 | USCV_ITS ---
Mili Davidson Age: 49 Gender: F : 1970 Exam Date: 09/27/2019 14:47 Ordering Phys: Juan Carroll MD Technologist: Xavier Sosa Exam Location: [facility] – [place] Indication: ZULMA BP: 110 / 74 HR: 108 Rhythm: Sinus Technical Quality: Suboptimal MEASUREMENTS (Male / Female) Normal Values 2D ECHO LVOT Diameter 2.0 cm LV Ejection Fraction MOD 2C 59.5 % LV Ejection Fraction 2C AL 59.3 % LA Diameter 3.9 cm LA Width 3.3 cm LA Height 5.2 cm RA Width 3.3 cm RA Height 4.5 cm M-MODE LV Diastolic Diameter MM 4.8 cm 4.2 - 5.9 / 3.9 - 5.3 cm LV Systolic Diameter MM 2.8 cm LV Ejection Fraction MM Teich 73.1 % IVS Diastolic Thickness MM 1.1 cm 0.6 - 1.0 / 0.6 - 0.9 cm IVS Systolic Thickness MM 1.5 cm LVPW Diastolic Thickness MM 1.0 cm 0.6 - 1.0 / 0.6 - 0.9 cm LVPW Systolic Thickness MM 1.4 cm RV Diastolic Diameter MM 2.1 cm Aortic Annulus Diameter 3.6 cm LA Ao Ratio MM 1.1 MV E Point Septal Separation 1.0 cm DOPPLER AV Peak Velocity 163.0 cm/s LVOT Peak Velocity 134.0 cm/s AV Area Cont Eq vti 2.3 cm squared AV Area Cont Eq pk 2.5 cm squared MV Area PHT 5.0 cm squared Mitral E to A Ratio 0.7 MV E' Velocity 7.0 cm/s Mitral E to MV E' Ratio 11.8 Mitral E to LV E' Lateral Ratio 11.2 Mitral E to LV E' Septal Ratio 12.6 TR Peak Velocity 150.0 cm/s TR Peak Gradient 9.0 mmHg TV Peak E Velocity 85.0 cm/s Right Atrial Pressure 3.0 mmHg Pulmonary Artery Systolic Pressu 12.0 mmHg PV Peak Velocity 108.0 cm/s FINDINGS Left Ventricle Left ventricular cavity not well visualized. Normal left ventricular size, systolic function and wall thickness, with no regional wall motion abnormalities. Grade I/IV diastolic dysfunction (abnormal relaxation filling pattern), normal to mildly elevated filling pressures. Left ventricular ejection fraction is estimated at 65 %. Right Ventricle Normal right ventricular size and systolic function. Normal right ventricular systolic pressure. Right Atrium The right atrium is normal in size. Left Atrium The left atrium is normal in size. Mitral Valve Mitral valve not well visualized. Aortic Valve Aortic valve not well visualized. Tricuspid Valve Tricuspid valve not well visualized. Pulmonic Valve Pulmonic valve not well visualized. Pericardium Normal pericardium without effusion. Aorta Normal ascending aorta dimension. CONCLUSIONS Left ventricular cavity not well visualized. Normal left ventricular size, systolic function and wall thickness, with no regional wall motion abnormalities. Grade I/IV diastolic dysfunction (abnormal relaxation filling pattern), normal to mildly elevated filling pressures. Left ventricular ejection fraction is estimated at 65 %. Technically limited study. No significant valve abnormalities. There are no prior echocardiogram studies to compare. Dr. Sterling Trammell MD (Electronically Signed) Final Date: 27 September 2019 16:49 S
[2019-09-28] VITALS (9 sets, daily range): BP systolic 112–134; BP diastolic 71–87; PULSE 85–111; RESP 16–24; TEMP 36.4–37; O2SAT 92–96
[2019-09-28] MEDS: sodium chloride 0.9% 1,000 ML 75 ML IV (05:20)
[2019-09-28] MEDS: amlodipine 5 mg Tablet PO (05:21)
[2019-09-28] MEDS: aspirin 81 mg EC Tablet PO (05:21)
[2019-09-28] MEDS: venlafaxine ER (24HR) 75 mg Capsule 150 MG PO (05:21)
[2019-09-28] MEDS: azithromycin 250 mg Tablet PO (09:36)
[2019-09-28] MEDS: levothyroxine 50 mcg Tablet PO (09:36)
[2019-09-28] MEDS: predniSONE 20 mg Tablet 40 MG PO (09:36)
[2019-09-28] MEDS: nicotine 21 mg Patch 1 PATCH TRANSDERMA (09:36)
[2019-09-28] MEDS: hydroCHLOROthiazide 25 mg Tablet PO (09:36)
[2019-09-28] MEDS: atorvastatin 40 mg Tablet 20 MG PO (09:36)
[2019-09-28 11:23] LABS: Basophils % 0.3 %; Eosinophils # 0.1 10^3/uL (0.0-0.8); Eosinophils % 0.8 %; Hematocrit 46.2 % (37.0-47.0); Lymphocytes # 2.1 10^3/uL (0.8-4.8); Lymphocytes % 32.6 %; Mean Corpuscular HGB Conc 32.5 g/dL (30.0-36.0); Mean Corpuscular Volume 89.2 fL (81-99); Mean Platelet Volume 9.8 fL (7.4-10.4); Monocytes # 0.3 10^3/uL (0.2-0.9); Monocytes % 4.7 %; Neutrophils # 3.9 10^3/uL (1.8-7.7); Neutrophils % 61.3 %; Nucleated Red Blood Cells % 0 %; Platelet Count 236 10^3/cmm (130-400); Red Blood Count 5.18 10^6/uL (4.1-5.3); Red Cell Distribution Width 12.6 % (12.1-15.1); White Blood Count 6.3 10^3/uL (4.0-10.0)
[2019-09-28 11:38] LABS: Alanine Aminotransferase 26 U/L (0-33); Albumin Level 4.1 g/dL (3.5-5.2); Alkaline Phosphatase 88 IU/L (35-105); Anion Gap 14.2 (5-19); Aspartate Amino Transferase 20 U/L (0-32); Blood Urea Nitrogen 14 mg/dL (6-20); Calcium 9.4 mg/dL (8.5-10.5); Carbon Dioxide 29 mmol/L (22-29); Chloride 102 mmol/L (98-107); Globulin 2.6 g/dL (1.3-4.6); Glomerular Filtration Rate 105.4 mL/min (90-130); Glucose 119 mg/dL (65-115); Osmolality Calculated 291 mOsm/kg (285-295); Potassium 3.2 mmol/L (3.5-5.1); Sodium 142 mmol/L (136-145); Total Bilirubin 0.3 mg/dL (0.15-1.2); Total Protein 6.7 g/dL (6.6-8.7)
--- NOTE | 2019-09-28 12:30 | PM.PN ---
Subjective Subjective: Interval history: Patient reports feeling better but still feels tired. Her tube out of 3 blood cultures in the same set came back positive with gram-positive cocci. She reports that she did not have any fever since she was admitted here. She started having blisters on her left side around upper and lower lips. Reports that she frequently gets it whenever she gets stressed. She continues to cough but reports that she is not producing anything. Denies chest pain or shortness of breath. Denies lightheadedness or dizziness. Vitals/I&O/Wt Last Vital Signs Temp 98.2 F 09/28/19 11:13 Pulse 92 09/28/19 11:13 Resp 18 09/28/19 11:13 BP 124/80 09/28/19 11:13 Pulse Ox 94 09/28/19 11:13 09/27/19 09/28/19 09/28/19 22:59 06:59 14:59 Intake Total 960 / 3160 1163.75 / 4323.75 Balance 960 / 3160 1163.75 / 4323.75 Weight last 48 hrs Weight 106.866 kg Weight 108.409 kg Physical Exam Const: COMMON NORMALS: no apparent distress and oriented x3 Resp: COMMON NORMALS: normal respiratory effort and clear to auscultation bilaterally AUSCULTATION: clear to auscultation bilaterally Cardio: COMMON NORMALS: regular rate, regular rhythm and S2 normal heart sound RATE: regular rate RHYTHM: regular rhythm HEART SOUNDS: S2 normal OTHER: No lower extremity edema GI: COMMON NORMALS: normal to inspection, nondistended, normoactive bowel sounds, soft to palpation and non-tender PALPATION: Yes soft Neuro: COMMON NORMALS: oriented x3 and no focal motor deficits Data : 09/28/19 10:42 09/28/19 10:42 Micro: Microbiology 09/28/19 10:42 Blood Culture - Preliminary Blood SPECIMEN COLLECTED 09/28/19 10:42 Blood Culture - Preliminary Blood SPECIMEN COLLECTED 09/26/19 18:40 Blood Culture - Preliminary Blood Gram positive cocci 09/26/19 19:55 Blood Culture - Preliminary Blood NEGATIVE TO DATE A&P Assessment and plan (1) Community acquired pneumonia: Ruled out. Status: Acute Qualifiers: Laterality: right Lung location: unspecified part of lung Qualified Code(s): J18.9 - Pneumonia, unspecified organism Code(s): J18.9 - Pneumonia, unspecified organism (2) Sepsis: Status: Acute Code(s): A41.9 - Sepsis, unspecified organism (3) Hypoxia: Status: Acute Code(s): R09.02 - Hypoxemia (4) Morbid obesity: Status: Acute Code(s): E66.01 - Morbid (severe) obesity due to excess calories (5) Smoker: Status: Acute Code(s): F17.200 - Nicotine dependence, unspecified, uncomplicated (6) Acute bronchitis: Status: Acute Code(s): J20.9 - Acute bronchitis, unspecified (7) Panic attack: Will give patient small dose Ativan and restart Xanax. During my evaluation patient's panic attack gradually improved and she was feeling better. Status: Acute Code(s): F41.0 - Panic disorder [episodic paroxysmal anxiety] Additional A&P Information Sepsis secondary to acute bronchitis Community-acquired pneumonia ruled out. She has been using steroids for her knee, she has used it for more than 4 weeks, this might have made her prone to development of pneumonia, considering her low pneumonia severity index I will use ceftriaxone and azithromycin for now Repeat blood cultures requested. Sepsis improved. Remained with good oxygen saturations throughout the night without nasal cannula. Will keep patient overnight and await for initial blood cultures results. Would like to give at least 48 hours prior to discharging patient although her positive blood cultures suspected to be contamination. Patient reports normal oral intake therefore will discontinue IV fluids. COPD without active exacerbation Currently compensated, active smoker, Has been evaluated by Dr. Brandt He has added long-acting muscarinic antagonist Had extensive discussion with patient of more than 3 minutes regarding importance of smoking cessation. Patient voiced understanding and reports that it will be very difficult for her to do. She asked me if she can go outside to smoke and I told her that I do not think it is a good idea considering her presenting diagnosis. She agreed to try nicotine patch while inpatient. Hypothyroidism: Continue levothyroxine 50 mcg Dyslipidemia: Continue rosuvastatin. Check hemoglobin A1c. Depression/anxiety: Venlafaxine 75 mg Active smoker: Patient has reservation against Chantix or nicotine replacement therapies Mediastinal lymphadenopathy. Likely reactive as it shows improvement. Patient may require repeat imaging in several months for reevaluation. Obstructive sleep apnea: Patient is endorsing morning headaches, bilateral leg swelling, excessive snoring, she has been prescribed hydrochlorothiazide for hypertension and edema of her legs Will get echo in the morning to evaluate for chamber pressures and pulmonary hypertension Full code Regular diet Attestations Medical Necessity Statement*: Patient with bacteremia requires close inpatient monitoring and treatment until deemed safe for discharge. Coding Level of Care Code Acute Reinforcing [employer] Re[employer] Workers for Chg Fwd Diagnoses Community acquired pneumonia J18.9 Laterality: right Lung location: unspecified part of lung Sepsis A41.9 Hypoxia R09.02 Morbid obesity E66.01 Smoker F17.200 Acute bronchitis J20.9 Panic attack F41.0
--- NOTE | 2019-09-28 12:59 | PC.NURSE ---
PT HAD BLOOD CULTURES COME BACK THAT WERE POSITIVE FOR GRAM POSITIVE COCCY 2/3 BOTTLES, DR ERNST WENT IN TO DISCUSS WITH PT THAT HE WAS GOING TO KEEP HER ANOTHER DAY AND THAT HE WAS GOING TO REPEAT THE BLOOD CULTURES TO SEE IF SHE HAD ANOTHER POSITIVE BLOOD CULTURE TO POSSIBLY RUN MORE TESTS IF SO OR IF IT WAS NEGATIVE HE WAS GOING TO SEND HER HOME AND POSSIBLY RUN A THIRD BLOOD CULTURE BEFORE SHE WAS DISCHARGED, AND BE HOME PENDING THE THIRD RESULTS.DR ERNST ALSO WENT OVER THE POSSIBLITY OF HAVING A ANGEL IF SHE HAD ANOTHER POSITIVE BLOOD CULTURE AND WHAT IT MEANS TO HAVE A POSITIVE BLOOD CULTURE. PT WAS A LITTLE UPSET THAT SHE HAS TO STAY ANOTHER NIGHT, BUT DR ERNST DISCUSSED WITH HER THE IMPORTANCE OF RUNNING ANOTHER BLOOD CULTURE AND STAYING OVER NIGHT, PT UNDERSTOOD, BUT JUST WANTED TO GET BACK TO HER JOB.
[2019-09-28] MEDS: ALPRAZolam 0.5 mg Tablet PO ×2 (13:08→21:14)
--- NOTE | 2019-09-28 13:09 | PC.CHAP ---
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 [] Patient/Family/Request visit [] Outpatient visit [] Follow-up visit [] Physician referral [] Code/Alert [x] Routine visit [] Staff referral [] Actively dying [] Patient sleeping [] Family support [] [] Out of room [] Palliative care [] [] Receiving care in room [] Pre-surgical visit [] Trauma [] Long length of stay [] ICU visit [] Other: Relational/Emotional Strength [x] Patient feels connected with others/family/visitors/staff [] Distress [] Loneliness/isolation [] Abandonment Spirituality of Patient [x] Person of Josy [x] Attends Sabianist of their Josy [] Believes in Prayer [] Reads Bible or Yazdanism materials [] There are Spiritual issues to be addressed Insights Strategist Interventions [x] Prayer [x] Active listening [x] Non-anxious presence [] Spiritual/emotional support [] Crisis/trauma care [] Spiritual counseling [] Bereavement support [] Provided bereavement packet [] Provided Bible/devotional materials [] Provided toy/stuffed animal, coloring book to patient or family member [] Provided Communion [] Anointing/[place] [] Salvation [x] Completed spiritual assessment [] Other: Impact on Illness or Injury [] Angry [] Fearful [] Anxious [] Often cries [] Exhaustion [] Unable to work [] Unable to attend jewish [] Unable to walk/stand [] Unable to read [] Unable to drive [] Unable to eat/drink [] Unable to sleep [] Unable to be with family [] Patient intubated [] Other: Summary patient feeling better 2 visitors Time spent with patient 10 min
[2019-09-28 13:50] LABS: Add Urine Microscopic? NO
[2019-09-28 14:15] LABS: Bilirubin Urine Neg (NEGATIVE); Blood Urine Neg (Negative); Glucose Urine UA Norm (Normal); Ketones Urine Negative (Negative); Leukocyte Esterase Urine Negative (Negative); Nitrate Urine Negative (Negative); Protein Urine Neg (Negative); Urine Appearance Clear (CLEAR); Urine Color Yellow (Yellow); Urobilinogen Urine Norm (Negative); pH Urine 6 (5-7)
--- NOTE | 2019-09-28 15:28 | PC.RESP ---
Patient given Pulmonary Rehab/Smoking Cessation information.
[2019-09-28] MEDS: valACYclovir 1,000 mg Tablet 1000 MG PO (16:10)
[2019-09-29] VITALS (7 sets, daily range): BP systolic 124–141; BP diastolic 70–86; PULSE 95–115; RESP 17–20; TEMP 36.3–37; O2SAT 92–95
[2019-09-29] MEDS: amlodipine 5 mg Tablet PO (05:20)
[2019-09-29] MEDS: aspirin 81 mg EC Tablet PO (05:20)
[2019-09-29] MEDS: venlafaxine ER (24HR) 75 mg Capsule 150 MG PO (05:20)
[2019-09-29 05:55] LABS: Basophils % 0.1 %; Eosinophils % 0.6 %; Hematocrit 43.2 % (37.0-47.0); Hemoglobin 14.2 g/dL (11.5-15.3); Lymphocytes # 2.6 10^3/uL (0.8-4.8); Lymphocytes % 37.2 %; Mean Corpuscular HGB Conc 32.9 g/dL (30.0-36.0); Mean Corpuscular Hemoglobin 29.1 pg (28.0-34.0); Mean Corpuscular Volume 88.5 fL (81-99); Mean Platelet Volume 9.8 fL (7.4-10.4); Monocytes # 0.3 10^3/uL (0.2-0.9); Monocytes % 4.9 %; Neutrophils # 3.9 10^3/uL (1.8-7.7); Neutrophils % 56.9 %; Nucleated Red Blood Cells % 0 %; Platelet Count 227 10^3/cmm (130-400); Red Blood Count 4.88 10^6/uL (4.1-5.3); Red Cell Distribution Width 12.3 % (12.1-15.1); White Blood Count 6.9 10^3/uL (4.0-10.0)
[2019-09-29 06:08] LABS: Alanine Aminotransferase 22 U/L (0-33); Albumin Level 3.7 g/dL (3.5-5.2); Alkaline Phosphatase 86 IU/L (35-105); Anion Gap 13.5 (5-19); Aspartate Amino Transferase 18 U/L (0-32); Blood Urea Nitrogen 11 mg/dL (6-20); Calcium 9.3 mg/dL (8.5-10.5); Carbon Dioxide 32 mmol/L (22-29); Chloride 101 mmol/L (98-107); Globulin 2.9 g/dL (1.3-4.6); Glomerular Filtration Rate 105.4 mL/min (90-130); Glucose 101 mg/dL (65-115); Osmolality Calculated 292 mOsm/kg (285-295); Potassium 3.5 mmol/L (3.5-5.1); Sodium 143 mmol/L (136-145); Total Bilirubin 0.3 mg/dL (0.15-1.2); Total Protein 6.6 g/dL (6.6-8.7)
[2019-09-29] MEDS: nicotine 21 mg Patch 1 PATCH TRANSDERMA (08:47)
[2019-09-29] MEDS: valACYclovir 1,000 mg Tablet 1000 MG PO (08:49)
[2019-09-29] MEDS: azithromycin 250 mg Tablet PO (08:50)
[2019-09-29] MEDS: atorvastatin 40 mg Tablet 20 MG PO (08:50)
[2019-09-29] MEDS: hydroCHLOROthiazide 25 mg Tablet PO (08:51)
[2019-09-29] MEDS: levothyroxine 50 mcg Tablet PO (08:51)
[2019-09-29] MEDS: predniSONE 20 mg Tablet 40 MG PO (08:52)
--- NOTE | 2019-09-29 12:50 | P.DS_ITS ---
Discharge Providers Date of Admission: 09/27/19 16:32 Date of Discharge: September 29, 2019 Attending Provider at Admission: Juan Carroll MD Attending Provider at Discharge: Efren Nettles MD Primary Care Provider: Cathy Vickers MD Diagnoses at Discharge Discharge Diagnosis (1) Community acquired pneumonia: Status: Acute Qualifiers: Laterality: right Lung location: unspecified part of lung Qualified Code(s): J18.9 - Pneumonia, unspecified organism (2) Sepsis: Status: Acute (3) Hypoxia: Status: Acute (4) Morbid obesity: Status: Acute (5) Smoker: Status: Acute (6) Acute bronchitis: Status: Acute (7) Panic attack: Status: Acute (8) Recurrent cold sores: Status: Acute Reason for Visit Reason for Visit: Reason For Visit: O2 is low, fever, sob Hospital Course Hospital Course: Patient presented with shortness of breath and fever. She noted to have episodes of hypoxia. She was diagnosed with acute bronchitis. She had no evidence of pneumonia on CT scan. She was treated with ceftriaxone and azithromycin and gradually improved. She continues to have episodes of hypoxia mostly at night and reports that for long period of time she has been waking up unrested and frequently napping and even falling asleep at work. We have discussed regarding importance of sleep study and importance of losing weight and patient voiced understanding. We shortly discussed intermittent fasting and importance to avoid unnecessary snacks. I had extensive discussion with patient regarding importance of smoking cessation. Patient voiced understanding and agreed to try nicotine patch. Her blood cultures 2 out of 3 in the same set came back positive and we have kept patient overnight and her initial blood culture is still negative. This felt to be false positive secondary contamination. I have discussed with patient regarding importance to immediately notify her primary care physician or present to emergency department if her condition worsens or she develops fever chills or sweats as she could possibly have true bloodstream infection. She denies chest pain or back pain. She denies any skin rashes. She has chronic left knee pain which she reports is due to have surgery for. She stopped taking ibuprofen because it hurts my stomach She just started seeing and has outpatient PFT test scheduled. I am sure Dr. Brandt will request sleep study as well. I will continue Omnicef for se veral more days for treatment of acute bronchitis. Her cough improved. Physical Exam Const: COMMON NORMALS: no apparent distress and oriented x3 Resp: COMMON NORMALS: normal respiratory effort and clear to auscultation bilaterally AUSCULTATION: clear to auscultation bilaterally Cardio: COMMON NORMALS: regular rate, regular rhythm and S2 normal heart sound RATE: regular rate RHYTHM: regular rhythm HEART SOUNDS: S2 normal OTHER: No lower extremity edema GI: COMMON NORMALS: normal to inspection, nondistended, normoactive bowel sounds, soft to palpation and non-tender PALPATION: Yes soft Neuro: COMMON NORMALS: oriented x3 and no focal motor deficits Discharge Data Data Completed and Pending: Completed Studies During Hospitalization Category Date Time Status CT angio chest PE protcl [id number] Rout ine Cat Scan 09/27/19 05:31 Completed XR chest 1V cristy ble [id number] Urgent Exams 09/26/19 15:17 Completed CV echo complete* [id number] Routine Ultrasound 09/27/19 21:16 Completed Pending at discharge Category Date Time Status Blood Culture Sta t Lab 09/26/19 19:55 Results Blood Culture Sta t Lab 09/28/19 10:42 Results Blood Culture Sta t Lab 09/29/19 12:42 Received Complete Blood Co unt w/Auto AM LABS Lab 09/30/19 04:00 Ordered Complete Blood Co unt w/Auto AM LABS Lab 10/01/19 04:00 Ordered Comprehensive Met abolic Panel AM LA BS Lab 09/30/19 04:00 Ordered Comprehensive Met abolic Panel AM LA BS Lab 10/01/19 04:00 Ordered Labs from last 24 hours 09/29/19 09/29/19 09/28/19 05:20 05:20 12:10 WBC 6.9 RBC 4.88 Hgb 14.2 Hct 43.2 MCV 88.5 MCH 29.1 MCHC 32.9 RDW 12.3 Plt Count 227 MPV 9.8 Neut % (Auto) 56.9 Lymph % (Auto) 37.2 [place] % (Auto) 4.9 Eos % (Auto) 0.6 Baso % (Auto) 0.1 Neut # (Auto) 3.9 Lymph # (Auto) 2.6 [place] # (Auto) 0.3 Eos # (Auto) 0.0 Baso # (Auto) 0.0 Nucleated RBC % (a uto) 0 Nucleated RBCs # 0.0 Sodium 143 Potassium 3.5 Chloride 101 Carbon Dioxide 32 H Anion Gap 13.5 BUN 11 Creatinine 0.6 GFR Calculation 105.4 Glucose 101 Calculated Osmolal ity 292 Calcium 9.3 Total Bilirubin 0.3 AST 18 ALT 22 Alkaline Phosphata se 86 Total Protein 6.6 Albumin 3.7 Globulin 2.9 Urine Color Yellow Urine Appearance Clear Urine pH 6 Ur Specific Gravit y 1.010 Urine Protein Neg Urine Glucose (UA) Norm Urine Ketones Negative Urine Blood Neg Urine Nitrate Negative Urine Bilirubin Neg Urine Urobilinogen Norm Ur Leukocyte Delmis ase Negative Vitals: Patient presented with shortness of breath and feverLast Vital Signs Temp 98.6 F 09/29/19 12:00 Pulse 115 H 09/29/19 12:00 Resp 17 09/29/19 12:00 BP 125/75 09/29/19 12:00 Pulse Ox 93 09/29/19 12:00 Discharge Plan Discharge Patient Disposition: Home, Self-Care Condition: Stable Prescriptions: New valacyclovir 1 gram Tablet 1,000 mg PO BID Qty: 5 RF: 0 nicotine 21 mg/24 hr Patch 24 Hour 1 patch transdermal DAILY Qty: 14 RF: 0 cefdinir 300 mg capsule 300 mg PO BID Qty: 6 RF: 0 Tylenol 8 Hour 650 mg tablet extended release 650 mg PO Q8H PRN (Reason: pain) Qty: 60 RF: 0 Continued rosuvastatin 5 mg tablet 5 mg PO DAILY RF: 0 aspirin [Adult Aspirin Regimen] 81 mg tablet,delayed release (DR/EC) 81 mg PO QAM RF: 0 atenolol 50 mg tablet 25 mg PO QAM RF: 0 venlafaxine [Effexor XR] 75 mg capsule,extended release 24hr 150 mg PO QAM RF: 0 amlodipine 5 mg tablet 5 mg PO QAM RF: 0 levothyroxine 50 mcg tablet 50 mcg PO DAILY RF: 0 nitroglycerin [Nitrostat] 0.4 mg tablet, sublingual 0.4 mg SUBLINGUAL Q5M PRN (Reason: Chest Pain) RF: 0 Spiriva with HandiHaler 18 mcg capsule, w/inhalation device 1 cap INHALATION QDAY 30 Days Qty: 30 RF: 3 pantoprazole [Protonix] 40 mg tablet,delayed release (DR/EC) 40 mg PO DAILY PRN (Reason: unknown) RF: 0 alprazolam 0.5 mg tablet 0.5 mg PO BID PRN (Reason: anxiety) 30 Days Qty: 40 RF: 3 hydrochlorothiazide 25 mg tablet 25 mg PO DAILY 30 Days Qty: 30 RF: 5 albuterol sulfate 90 mcg/actuation HFA aerosol inhaler 2 inh INHALATION Q4H PRN (Reason: shortness of breath or wheezing) Qty: 8.5 RF: 0 calcium carb-mag oxide-zinc ox 334-134-5 mg Tablet 1 tab PO DAILY RF: 0 Voltaren 1 % gel 2 gm TOPICAL BID PRN (Reason: unknown) RF: 0 Discontinued ibuprofen 800 mg tablet 800 mg PO TID PRN (Reason: Pain) RF: 0 prednisone See Rx Instructions .ROUTE .COMPLEX RF: 0 Discharge Orders: Discharge Order (Routine); Ordered 09/29/19 Ordered By: Efren Nettles Referrals: Cathy Vickers MD [Primary Care Provider] - 4-7 days Discharge Diet: As Directed Discharge Activity: Increase activity as tolerated Patient Instructions: Bronchitis (Acute) - Adult, Acetaminophen (By mouth), Nicotine (Into the mouth), Cefdinir (By mouth), How to Stop Smoking (DC), Obesity (DC), Anxiety (DC) Activity Restrictions/Additional Instructions: Please call your doctor or present to emergency department if your condition worsens or you develop diarrhea, lightheadedness, fatigue or see blood in your stool or black stool. Please discuss with your doctor regarding need to check blood cultures next week to make sure they remain negative. 2+ blood cultures from 1 set are felt to be a contamination but you have to immediately notify your doctor in case if you develop fever, chills, diaphoresis or your condition worsens as you may potentially have to bloodstream infection which will need to be further evaluated. Please discuss with your doctor regarding lifestyle and diet modification to lose weight and to have outpatient sleep study scheduled. 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
--- NOTE | 2019-09-29 13:48 | PC.NURSE ---
Spoke with Provider, reviewed continuos pulse ox with him. The lowest the pulse ox went was 92% on RA. Provider pleased and home eval for oxygen was placed. Will continue to monitor.
== END 2019-09-29 14:20 | disposition home or self-care (01) | DRG 872 ==
LOC: ER 17:56 → MEDSURG 22:14
PROVIDERS: Physician Assistant; Admitting Provider Internal Medicine; Emergency Provider Emergency Medicine; Family Provider Family Medicine; PCP Family Medicine; Visit Provider Internal Medicine
DX: A41.9 Sepsis, unspecified organism (principal); Z68.41 Body mass index [BMI] 40.0-44.9, adult; J44.0 Chronic obstructive pulmonary disease with (acute) lower respiratory infection; E66.01 Morbid (severe) obesity due to excess calories; F41.0 Panic disorder [episodic paroxysmal anxiety]; J20.9 Acute bronchitis, unspecified; Z79.52 Long term (current) use of systemic steroids; F32.9 Major depressive disorder, single episode, unspecified; I25.2 Old myocardial infarction; J44.9 Chronic obstructive pulmonary disease, unspecified; E78.5 Hyperlipidemia, unspecified; E03.9 Hypothyroidism, unspecified; K21.9 Gastro-esophageal reflux disease without esophagitis; I10 Essential (primary) hypertension; I25.10 Atherosclerotic heart disease of native coronary artery without angina pectoris; Z86.718 Personal history of other venous thrombosis and embolism; Z79.899 Other long term (current) drug therapy; F41.9 Anxiety disorder, unspecified; G47.33 Obstructive sleep apnea (adult) (pediatric); F17.210 Nicotine dependence, cigarettes, uncomplicated; Z79.82 Long term (current) use of aspirin
CPT/HCPCS: 12345; 36415; 36600; 71045; 71275; 80048; 80053; 81003; 82803; 83036; 83880; 85025; 85378; 86403; 87040; 87077; 87186; 87205; 87449; 87804; 93306; 94640; 94660; 94762; 96372; 96375; 99282; G0378; J0456; J0696; J1650; J2060; J7030; J7050; J7512; J7611; Q0144; Q9967

== ENCOUNTER 2019-12-07 10:00 | Outpatient (CLI) | payer OTHER, SELFPAY ==
--- NOTE | 2019-12-07 13:21 | PFTS_ITS ---
Date of Study:12/07/19 Date of Dictation: MECHANICS: Forced vital capacity (FVC) is normal. Forced expiratory volume in one second (FEV1) is normal. FEV1/FVC is normal. FLOW VOLUME LOOP: Mild scooping especially at lower lung volumes. LUNG VOLUMES: Total lung capacity (TLC) is mildly reduced. Residual volume (RV) is reduced. DIFFUSING CAPACITY FOR CARBON MONOXIDE: Normal. INTERPRETATION: The spirometry is normal. Lung volumes are consistent with mild reduction in total lung capacity and residual volume. Gas exchange (DLCO) is normal. MTDD
== END 2019-12-07 10:01 | disposition home or self-care (01) ==
LOC: RT 10:03
PROVIDERS: PCP Family Medicine; Visit Provider Internal Medicine Critical Care Medicine
DX: J44.9 Chronic obstructive pulmonary disease, unspecified (principal)
CPT/HCPCS: 94010; 94060; 94729

== ENCOUNTER 2020-02-09 20:00 | Outpatient (CLI) | payer OTHER, SELFPAY | END 2020-02-09 20:01 | disposition home or self-care (01) | LOC: SLEEP 02-10 11:46 | PROVIDERS: PCP Family Medicine; Visit Provider Internal Medicine Critical Care Medicine | DX: G47.30 Sleep apnea, unspecified (principal) | CPT/HCPCS: 95810 ==

== ENCOUNTER 2020-03-03 12:28 | Emergency (ER) | payer OTHER, SELFPAY ==
[2020-03-03 12:40] VITALS: BP 145/85; PULSE 78; RESP 26; TEMP 36.6; O2SAT 98; BMI 40.1
--- NOTE | 2020-03-03 13:17 | ECG_ITS ---
[facility] Test Date: 2020-03-03 Pat Name: Mili Davidson Department: Room: Gender: Female Donations Attendant: : 1970 Requested By: Akbar Han I Order Number: [id number] Ольга MD: Juan Bey M.D. Measurements Intervals [place] Rate: 78 P: 19 [place]: 164 QRS: 32 QRSD: 78 T: 52 QT: 371 QTc: 423 Interpretive Statements SINUS RHYTHM LOW QRS VOLTAGE IN PRECORDIAL LEADS [QRS DEFLECTION < 1.0 mV IN CHEST LEADS] SEPTAL MYOCARDIAL INFARCTION [40+ ms Q WAVE IN V1/V2], PROBABLY OLD Compared to ECG 08/06/2019 10:15:12 Low QRS voltage now present Myocardial infarct finding now present Electronically Signed On 03-04-2020 18:10:32 CDT by Juan Bey M.D. [id number] f
--- NOTE | 2020-03-03 13:17 | XRR_ITS ---
PROCEDURE INFORMATION: Exam: XR Chest, 1 View Exam date and time: 03/03/2020 1:18 PM Age: 49 years old Clinical indication: Chest pain TECHNIQUE: Imaging protocol: XR of the chest Views: 1 view. COMPARISON: CR XR chest 1V portable [id number] 09/26/2019 3:37 PM FINDINGS: Lungs: Calcified granulomas. No consolidation. Pleural space: Unremarkable. No pleural effusion. No pneumothorax. Heart/Mediastinum: Unremarkable. No cardiomegaly. Bones/joints: No acute findings. XR/XR chest 1V portable [id number] IMPRESSION: No acute findings.
[2020-03-03 13:32] LABS: Basophils % 0.3 %; Eosinophils # 0.1 10^3/uL (0.0-0.8); Eosinophils % 0.6 %; Hematocrit 46.2 % (37.0-47.0); Hemoglobin 15.5 g/dL (11.5-15.3); Lymphocytes # 3.4 10^3/uL (0.8-4.8); Lymphocytes % 28.6 %; Mean Corpuscular HGB Conc 33.5 g/dL (30.0-36.0); Mean Corpuscular Hemoglobin 29.6 pg (28.0-34.0); Mean Corpuscular Volume 88.3 fL (81-99); Mean Platelet Volume 9.5 fL (7.4-10.4); Monocytes # 0.6 10^3/uL (0.2-0.9); Monocytes % 5.2 %; Neutrophils % 64.9 %; Nucleated Red Blood Cells % 0 %; Platelet Count 279 10^3/cmm (130-400); Red Blood Count 5.23 10^6/uL (4.1-5.3); Red Cell Distribution Width 12.5 % (12.1-15.1)
[2020-03-03 13:36] LABS: INR 0.82 (0.8-1.2)
[2020-03-03 13:47] LABS: Troponin(5th) Baseline 6 ng/L (0-10)
[2020-03-03 13:55] LABS: Alanine Aminotransferase 21 U/L (0-33); Albumin Level 4.5 g/dL (3.5-5.2); Alkaline Phosphatase 105 IU/L (35-105); Anion Gap 15.2 (5-19); Aspartate Amino Transferase 20 U/L (0-32); Blood Urea Nitrogen 14 mg/dL (6-20); Carbon Dioxide 29 mmol/L (22-29); Chloride 102 mmol/L (98-107); Creatine Phosphokinase 103 U/L (26-192); Globulin 2.1 g/dL (1.3-4.6); Glomerular Filtration Rate 58.5 mL/min (90-130); Glucose 111 mg/dL (65-115); Lipase 62 U/L (13-60); NT Pro B Type Natriuretic Pept 167 pg/mL (0-125); Osmolality Calculated 293 mOsm/kg (285-295); Potassium 3.2 mmol/L (3.5-5.1); Sodium 143 mmol/L (136-145); Total Bilirubin 0.5 mg/dL (0.15-1.2); Total Protein 6.6 g/dL (6.6-8.7)
--- NOTE | 2020-03-03 14:21 | W.ED.CHESTPA ---
HPI - Chest Pain General: Chief Complaint: Chest Pain Stated Complaint: cp Time Seen by Provider: 03/03/20 13:06 Source: patient, family (daughter) and old records reviewed Mode of arrival: ambulatory Limitations: no limitations History of Present Illness: HPI narrative: 49 year old female with a prior history of CAD, MD presents with left sided chest pain that started while she was out doing yard work. The pain was left-sided and radiated down both arms. She has had this kind of pain in the past and usually resolves shortly after taking the nitro pill. Today she took a nitro pill and rested and the pain was still present. Because of this she decided to come to the emergency department. On her way to the emergency department she took another nitroglycerin pill and this resolved her pain. She is currently pain-free. And is requesting to be discharged. She does not want to stay. I was able to convince her however that it is important to get evaluated as she is high risk. MD complaint: chest pain Pertinent past history: coronary artery disease and prior MD Timing of current episode: constant and now resolved Prior episodes: Yes Onset: during exertion Pain location: left chest Pain radiation: right arm and left arm Severity: moderate Quality: sharp Relieving factors: nitroglycerin Exacerbating factors: exertion Associated symptoms: Reports nausea; Deny abdominal pain, diaphoresis, dyspnea, fever(s), leg edema, palpitations, sense of impending doom, syncope or vomiting Treatment prior to arrival: aspirin and nitroglycerin Review of Systems General: Reports: 10 or more systems reviewed and unremarkable except in HPI and below Const: Denies: fever(s) or diaphoresis Eyes: Denies: change in vision or blurry vision ENMT: Denies: throat pain, enlarged tonsils, odynophagia, hoarseness, mouth pain or swelling of lips/tongue Card: Denies: palpitations or syncope Resp: Denies: dyspnea GI: Reports: nausea; Denies: abdominal pain or vomiting : Denies: flank pain, difficulty voiding, dysuria, urinary frequency, urinary urgency or urinary hesitancy Musc: Denies: neck pain, back pain or extremity swelling Skin/Breast: Denies: rash, pruritus or erythema Neuro: Denies: headache(s), numbness in extremities or weakness in extremities Endo: Denies: polyuria, polydipsia or tired all the time [facility] ED PFSH: Medical History Coronary artery disease 10/2015: History of MD. History of posterior inferior wall MD without obstructive coronary artery disease or small vessel disease with spasm induced coronary ischemia. Depression with anxiety Essential hypertension Gastroesophageal reflux History of DVT (deep vein thrombosis) Hyperlipidemia Hypothyroidism Menopause Not a candidate for HRT due to history of DVT. Osteoarthritis of right knee Vaginal polyp Vaginal polyp Surgical History H/O carpal tunnel repair (~2017) Right History of arthroscopic knee surgery (06/10/17) Left. Performed [place]. Roblero [place] [facility] [place] History of cholecystectomy (09/03/14) Laparoscopic. Performed [place] Dr. Garcia at [facility] [place]. History of total hysterectomy (01/13/17) MELANY BETTS.Dx: DUB. Performed by Dr. Colmenares at [facility] [place]. History of tubal ligation (~11/1993) Family History Father Hypertension Grandmother Hypertension Maternal Diabetes Maternal Heart disease Maternal Stroke Maternal Hypothyroidism Maternal Mother Hypothyroidism Grandmother Breast cancer Paternal Ovarian cancer Paternal Other Hypercholesterolemia Social History Smoking and tobacco status: current every day smoker cigarettes Packs smoked per day: 1 Years cigarettes smoked: 35 Quit status (tobacco): not considering quitting Smoking risk assessment/counseling performed?: Yes Alcohol intake: never Lives independently: Yes Household members: family Current occupational status: employed Current occupation: [employer] [employer] [facility] [place] History of recent travel: No Current gender identity: Female Physical Exam Const: COMMON NORMALS: no acute distress, average body habitus, patient oriented x3, no limitations, healthy appearing, alert and well nourished HENMT: COMMON NORMALS: normocephalic, atraumatic and moist oral mucous membranes HEAD & SCALP: normocephalic and atraumatic Neck/C-Spine: COMMON NORMALS: no meningeal signs and no JVD Chest: COMMONS NORMALS: normal inspection of the chest and normal palpation of entire chest wall Resp: COMMON NORMALS: normal respiratory effort, No retractions, No use of accessory muscles, clear to auscultation bilaterally and percussion normal AUSCULTATION: clear to auscultation bilaterally PERCUSSION: percussion normal Cardio: COMMON NORMALS: no JVD, regular rate, regular rhythm, S1 normal heart sound present, S2 normal heart sound present, No gallops present (Cardio), No clicks present (Cardio), No murmurs present (Cardio), No rub (Cardio) and Peripheral pulses 2+ throughout RATE: regular rate RHYTHM: regular rhythm HEART SOUNDS: S1 normal heart sound present and S2 normal heart sound present PERIPHERAL PULSES: Peripheral pulses 2+ throughout GI: COMMON NORMALS: Normal to inspection, nondistended, normoactive bowel sounds present, Soft to palpation, non-tender, No hepatosplenomegaly present, no masses and no bruits PALPATION: Yes Soft to palpation and Yes No hepatosplenomegaly present Extremity: COMMON NORMALS: normal to inspection, full ROM, capillary refill normal, no calf tenderness and no pedal edema Neuro: COMMON NORMALS: patient oriented x3 SENSORIUM/ORIENTATION: Yes alert MENINGEAL SIGNS: Yes no meningeal signs Course Reevaluation(s): Reevaluation #1: Discussed her lab and imaging findings with her. Labs are unremarkable including negative high-sensitivity troponin I discussed her heart score with her and explained that she falls into the moderate category and will benefit from hospital admission for a stress test. However the patient is not interested in staying in the hospital and wants to be discharged home but will call her sterile preparation technician on Thursday for a stress test. Just in case she does not do this I am going to also order an outpatient stress test for her. She is advised not to exert herself until she sees her sterile preparation technician. She voiced understanding and is in agreement with the plan. Time: 14:21 Vital Signs: Vital signs: Vital Signs Temperature 97.8 F 03/03/20 12:40 Pulse Rate 78 03/03/20 12:40 Respiratory Rate 26 H 03/03/20 12:40 Blood Pressure 145/85 03/03/20 12:40 Pulse Oximetry 98 03/03/20 12:40 MDM - Chest Pain MDM Narrative: Medical decision making narrative: 49-year-old female patient with a prior history of an MD presents to the emergency department with chest pain that was not initially relieved by her first dose of nitroglycerin. Because of this she came to the ER for evaluation, however a second dose of nitroglycerin resolved the pain prior to arrival in the emergency department. Evaluation in the emergency department was negative for elevation of her troponin. However her heart score is 4, 1 for history 1 for age and 2 for risk factors. Because of this she was advised to stay in the hospital for stress test, however the patient declined this and opted for an outpatient stress test. She would like for her sterile preparation technician to arrange this. I also ordered an outpatient stress test in case she is not compliant. Medical Records: Attestation: I reviewed the patient's medical records. Lab Data: Attestation: I reviewed the patient's lab results. Labs: Lab Results 03/03/20 03/03/20 03/03/20 Range/Units 13:03 13:03 13:03 WBC 12.0 H (4.0-10.0) 10^3/ uL RBC 5.23 (4.1-5.3) 10^6/u L Hgb 15.5 H (11.5-15.3) g/dL Hct 46.2 (37.0-47.0) % MCV 88.3 (81-99) fL MCH 29.6 (28.0-34.0) pg MCHC 33.5 (30.0-36.0) g/dL RDW 12.5 (12.1-15.1) % Plt Count 279 (130-400) 10^3/c mm MPV 9.5 (7.4-10.4) fL Neut % (Auto) 64.9 % Lymph % (Auto) 28.6 % Hendricks % (Auto) 5.2 % Eos % (Auto) 0.6 % Baso % (Auto) 0.3 % Neut # (Auto) 7.80 H (1.8-7.7) 10^3/u L Lymph # (Auto) 3.4 (0.8-4.8) 10^3/u L Hendricks # (Auto) 0.6 (0.2-0.9) 10^3/u L Eos # (Auto) 0.1 (0.0-0.8) 10^3/u L Baso # (Auto) 0.0 (0.0-0.1) 10^3/u L Nucleated RBC % (a uto) 0 % Nucleated RBCs # 0.0 /100WBC PT 11.50 L (12.1-14.9) SECO NDS INR 0.82 (0.8-1.2) Sodium 143 (136-145) mmol/L Potassium 3.2 L (3.5-5.1) mmol/L Chloride 102 (98-107) mmol/L Carbon Dioxide 29 (22-29) mmol/L Anion Gap 15.2 (5-19) BUN 14 (6-20) mg/dL Creatinine 1.0 H (0.5-0.9) mg/dL GFR Calculation 58.5 L (90-130) mL/min Glucose 111 (65-115) mg/dL Calculated Osmolal ity 293 (285-295) mOsm/k g Calcium 10.0 (8.5-10.5) mg/dL Total Bilirubin 0.5 (0.15-1.2) mg/dL AST 20 (0-32) U/L ALT 21 (0-33) U/L Alkaline Phosphata se 105 (35-105) IU/L Creatine Kinase 103 (26-192) U/L Troponin T Baselin e (0-10) ng/L NT-Pro-B Natriuret Pep 167 H (0-125) pg/mL Total Protein 6.6 (6.6-8.7) g/dL Albumin 4.5 (3.5-5.2) g/dL Globulin 2.1 (1.3-4.6) g/dL Lipase 62 H (13-60) U/L 03/03/20 Range/Units 13:03 WBC (4.0-10.0) 10^3/ uL RBC (4.1-5.3) 10^6/u L Hgb (11.5-15.3) g/dL Hct (37.0-47.0) % MCV (81-99) fL MCH (28.0-34.0) pg MCHC (30.0-36.0) g/dL RDW (12.1-15.1) % Plt Count (130-400) 10^3/c mm MPV (7.4-10.4) fL Neut % (Auto) % Lymph % (Auto) % Hendricks % (Auto) % Eos % (Auto) % Baso % (Auto) % Neut # (Auto) (1.8-7.7) 10^3/u L Lymph # (Auto) (0.8-4.8) 10^3/u L Hendricks # (Auto) (0.2-0.9) 10^3/u L Eos # (Auto) (0.0-0.8) 10^3/u L Baso # (Auto) (0.0-0.1) 10^3/u L Nucleated RBC % (a uto) % Nucleated RBCs # /100WBC PT (12.1-14.9) SECO NDS INR (0.8-1.2) Sodium (136-145) mmol/L Potassium (3.5-5.1) mmol/L Chloride (98-107) mmol/L Carbon Dioxide (22-29) mmol/L Anion Gap (5-19) BUN (6-20) mg/dL Creatinine (0.5-0.9) mg/dL GFR Calculation (90-130) mL/min Glucose (65-115) mg/dL Calculated Osmolal ity (285-295) mOsm/k g Calcium (8.5-10.5) mg/dL Total Bilirubin (0.15-1.2) mg/dL AST (0-32) U/L ALT (0-33) U/L Alkaline Phosphata se (35-105) IU/L Creatine Kinase (26-192) U/L Troponin T Baselin e 6 (0-10) ng/L NT-Pro-B Natriuret Pep (0-125) pg/mL Total Protein (6.6-8.7) g/dL Albumin (3.5-5.2) g/dL Globulin (1.3-4.6) g/dL Lipase (13-60) U/L Imaging Data^: CXR: Attestation: I personally reviewed and interpreted this imaging study as follows: My impression: No acute findings. EKG Data^: EKG 1: Attestation: I personally reviewed and interpreted this EKG as follows: EKG interpretation date: 03/03/20 EKG interpretation time: 12:46 Prior EKG tracings: not available for review Interpretation: Sinus rhythm. Heart rate [address] changes. No STEMI. Discharge Plan Discharge Patient Disposition: Home Clinical Impression: Angina of effort Condition: Stable Prescriptions: Continued rosuvastatin 5 mg tablet 5 mg PO DAILY RF: 0 aspirin [Adult Aspirin Regimen] 81 mg tablet,delayed release (DR/EC) 81 mg PO QAM RF: 0 atenolol 50 mg tablet 25 mg PO QAM RF: 0 nitroglycerin [Nitrostat] 0.4 mg tablet, sublingual 0.4 mg SUBLINGUAL Q5M PRN (Reason: Chest Pain) RF: 0 methylprednisolone acetate 80 mg/mL suspension 80 mg IM ONCE Qty: 1 RF: 0 hydrochlorothiazide 25 mg tablet 25 mg PO DAILY 30 Days Qty: 30 RF: 5 levothyroxine 50 mcg tablet 50 mcg PO DAILY Qty: 90 RF: 3 alprazolam 0.5 mg tablet 0.5 mg PO BID PRN (Reason: anxiety) 30 Days Qty: 40 RF: 3 pantoprazole [Protonix] 40 mg tablet,delayed release (DR/EC) 40 mg PO DAILY PRN (Reason: unknown) Qty: 30 RF: 5 amlodipine 5 mg tablet 5 mg PO QAM Qty: 90 RF: 3 hydrocodone-acetaminophen 5-325 mg tablet 0.5 - 1 tab PO Q12H PRN (Reason: pain) 30 Days Qty: 45 RF: 0 meloxicam 7.5 mg tablet 7.5 mg PO DAILY Qty: 30 RF: 2 venlafaxine [Effexor XR] 75 mg capsule,extended release 24hr 150 mg PO QAM Qty: 90 RF: 1 albuterol sulfate 90 mcg/actuation HFA aerosol inhaler 2 inh INHALATION Q4H PRN (Reason: shortness of breath or wheezing) Qty: 8.5 RF: 0 calcium carb-mag oxide-zinc ox 334-134-5 mg Tablet 1 tab PO DAILY RF: 0 Voltaren 1 % gel 2 gm TOPICAL BID PRN (Reason: unknown) RF: 0 Tylenol 8 Hour 650 mg tablet extended release 650 mg PO Q8H PRN (Reason: pain) Qty: 60 RF: 0 Discharge Orders: Discharge Order (Routine); Ordered 03/03/20 Ordered By: Akbar Han Referrals: Cathy Vickers MD [Primary Care Provider] - 1-3 days Juan Bey MD [Physician] - 1-3 days (For stress test) Discharge Diet: Usual diet Discharge Activity: Limit activity as instructed Patient Instructions: Angina (ED) Activity Restrictions/Additional Instructions: Return for any new or worsening symptoms. Follow-up with your sterile preparation technician on Thursday so he can obtain a stress test as soon as possible. Reduce strenuous activities until you see your sterile preparation technician. Follow-up with your primary care provider within 3 days. Coding Level of Care Code ED [employer] Director for Keyanna Frazier
[2020-03-03 14:58] VITALS: BP 140/95; PULSE 69; RESP 14; O2SAT 94
--- NOTE | 2020-03-06 15:16 | DCPLANNER ---
emergency department manager had message to schedule an outpatient stress test for patient. emergency department manager faxed order to centralized scheduling, they will call patient with appointment information. emergency department manager will call for appointment information.
--- NOTE | 2020-03-09 13:42 | DCPLANNER ---
Patient had a stress test scheduled, was cancelled due to not being able to reach patient.
== END 2020-03-03 15:00 | disposition home or self-care (01) ==
PROVIDERS: Emergency Provider Family Medicine; PCP Family Medicine
DX: I25.118 Atherosclerotic heart disease of native coronary artery with other forms of angina pectoris (principal); Z79.82 Long term (current) use of aspirin; I10 Essential (primary) hypertension; E78.5 Hyperlipidemia, unspecified; F17.210 Nicotine dependence, cigarettes, uncomplicated
CPT/HCPCS: 12345; 71045; 80053; 82550; 83690; 83880; 84484; 85025; 85610; 93005; 99281; 99284

== ENCOUNTER 2020-03-20 20:00 | Outpatient (CLI) | payer OTHER, SELFPAY | END 2020-03-20 20:01 | disposition home or self-care (01) | LOC: SLEEP 03-21 09:10 | PROVIDERS: PCP Family Medicine; Visit Provider Family Medicine | DX: G47.33 Obstructive sleep apnea (adult) (pediatric) (principal) | CPT/HCPCS: 95811 ==

== ENCOUNTER 2020-03-27 14:45 | Outpatient (CLI) | payer OTHER, SELFPAY ==
--- NOTE | 2020-03-27 15:07 | XR_ITS ---
WS: [id number] CHEST 2 VIEWS HISTORY: copd exacerbation COMPARISON: 03/03/2020 Lungs: Bilateral subsegmental areas of atelectasis at the lung bases. Benign granuloma RIGHT lower lo be. Normal vasculature. Cardiac size: Normal. Mediastinum/Aorta: Mild atherosclerosis aorta. Bones: Healing rib fracture posterior LEFT fifth rib. XR/XR chest 2V* [id number] IMPRESSION: Subsegmental atelectasis at the lung bases. No pneumonia.
== END 2020-03-27 14:46 | disposition home or self-care (01) ==
LOC: RADWPI 14:49
PROVIDERS: PCP Family Medicine; Visit Provider Family Medicine
DX: J44.1 Chronic obstructive pulmonary disease with (acute) exacerbation (principal); J98.11 Atelectasis
CPT/HCPCS: 71046

== ENCOUNTER → 2020-04-12 09:58 | Outpatient (BNVA) | payer OTHER, SELFPAY | PROVIDERS: PCP Family Medicine; Visit Provider Family Medicine | DX: K85.90 Acute pancreatitis without necrosis or infection, unspecified (principal); R10.9 Unspecified abdominal pain | CPT/HCPCS: 80053; 82150; 85025 ==

== ENCOUNTER 2020-04-16 07:50 | Outpatient (CLI) | payer OTHER, SELFPAY ==
--- NOTE | 2020-04-16 08:00 | US_ITS ---
WS: [id number] Complete ABDOMINAL ULTRASOUND HISTORY: left upper quadrant pain COMPARISON: 09/02/2014 Liver: 16.9 cm in length. Mildly enlarged liver with mild hepatic steatosis. No mass or bile duct dil atation. Gallbladder: Prior cholecystectomy. Pancreas: Normal size and echogenicity. CBD: 0.5 cm. Right kidney: 11.9 cm x 4.8 cm x 5.3 cm. No mass, cortical thickening or hydronephrosis. Left kidney: 11.5 cm x 4.5 cm x 5.7 cm. No mass, cortical thickening or hydronephrosis. Spleen: Normal size and echogenicity. Abdominal aorta and IVC are within normal limits. No ascites. US/US abdomen complete* [id number] IMPRESSION: 1. Status post cholecystectomy. 2. Mild hepatomegaly and hepatic steatosis.
== END 2020-04-16 07:51 | disposition home or self-care (01) ==
LOC: US 07:52
PROVIDERS: PCP Family Medicine; Visit Provider Family Medicine
DX: R10.12 Left upper quadrant pain (principal); R16.0 Hepatomegaly, not elsewhere classified; K76.0 Fatty (change of) liver, not elsewhere classified; Z90.49 Acquired absence of other specified parts of digestive tract
CPT/HCPCS: 76700

== ENCOUNTER 2020-05-22 08:27 | Outpatient (CLI) | payer OTHER, SELFPAY ==
[2020-05-22] MEDS: iohexol 300 mg/mL 50 mL Btl PO (09:13)
--- NOTE | 2020-05-22 10:00 | CT_ITS ---
WS: [id number] CT scan of the abdomen and pelvis with Oral and IV contrast. Additional two-dimensional coronal and s agittal reconstruction was performed. 05/22/2020 Clinical Data: abdominal pain Comparison: CT abdomen, 06/09/2018. DLP: 1220.[address] scans at [facility] use at least one of these dose optimization techniques: automat ed exposure control; mA and/or kV adjustment per patient size (includes targeted exams where dose is matched to clinical indication); or iterative reconstruction. Findings: The lower lungs show no nodules, masses or effusions. The liver, spleen, adrenal glands and pancreas are normal. There are clips in the gallbladder fossa f rom a cholecystectomy. The kidneys show equal bilateral contrast excretion with no cyst or masses. The abdominal aorta is normal in size with minimal calcification in the wall. No appendicitis or diverticulitis is seen. Oral contrast is in the stomach, small bowel and colon an d there is no bowel dilatation. No abscess, adenopathy, ascites, mass, obstruction or free air is see n. The bladder is unremarkable. No inguinal hernia is seen. The uterus is absent. The bones of the lower thorax, lumbar spine, pelvis, and hips show only mild osteoarthritic change of the vertebral bodies.. CT/CT abdomen pelvis w con* [id number] Impression: Negative for acute intra-abdominal and pelvic abnormalities.
[2020-05-22] MEDS: iohexol 300 mg/mL 100 mL Btl IV (10:08)
== END 2020-05-22 08:28 | disposition home or self-care (01) ==
LOC: RADWPI 08:31
PROVIDERS: PCP Family Medicine; Visit Provider Surgery
DX: R10.9 Unspecified abdominal pain (principal)
CPT/HCPCS: 74177; Q9967

== ENCOUNTER → 2020-05-23 15:49 | Outpatient (BNVA) | payer OTHER, SELFPAY | PROVIDERS: PCP Family Medicine; Referring Provider Family Medicine; Visit Provider Orthopaedic Surgery | DX: M25.561 Pain in right knee (principal); M77.8 Other enthesopathies, not elsewhere classified | CPT/HCPCS: 73562 ==

== ENCOUNTER 2020-06-20 13:32 | Outpatient (CLI) | payer OTHER, SELFPAY ==
--- NOTE | 2020-06-20 13:45 | MR_ITS ---
WS: [id number] MRI LUMBAR SPINE NONCONTRAST TECHNIQUE: Sagittal T1, T2 and STIR imaging. Axial T1 and T2 imaging. CLINICAL INFORMATION: M51.16 - Intervertebral disc disorders with radiculopathy, lumbar region COMPARISON: None. FINDINGS: Mild lumbar curve. No acute compression. No high-grade central canal stenosis. L1-L2: No significant disc bulging. Mild facet arthropathy. Spinal canal and foramen are patent. L2-L3: No significant disc bulging. Mild facet arthropathy. Mild right and no significant left forami nal narrowing. Mild facet arthropathy. L3-L4: Mild right and no significant left foraminal narrowing. Mild facet arthropathy. Spinal canal i s patent. L4-L5: Mild right and no significant left foraminal narrowing. Mild facet arthropathy. Spinal canal i s patent. L5-S1: Mild disc bulging with slight effacement of the ventral thecal sac. Slight narrowing of the le ft greater than right subarticular recess. Eccentric disc bulging and osteophytic ridging results in moderate left and mild right foraminal narrowing. Slight impingement on the exiting left L5 nerve medina t. Visualized pelvic bony structures: Normal. Paravertebral soft tissues: Normal. MR/MR lumbar spine wo con* [id number] IMPRESSION: 1. Mild lumbar curve. No acute compression. No high-grade central canal stenos is. 2. Mild right L3-L4, right L4-L5 and bilateral L5-S1 foraminal narrowing worse on the left. 3. Mild disc bulging L5-S1 with narrowing of the left greater than right subar ticular recess. 4. Mild facet arthropathy L3-L5.
== END 2020-06-20 13:33 | disposition home or self-care (01) ==
LOC: RADSHAW 13:34
PROVIDERS: PCP Family Medicine; Visit Provider Family Medicine
DX: M51.16 Intervertebral disc disorders with radiculopathy, lumbar region (principal); M47.816 Spondylosis without myelopathy or radiculopathy, lumbar region; M51.27 Other intervertebral disc displacement, lumbosacral region
CPT/HCPCS: 72148

== ENCOUNTER → 2020-06-29 11:31 | Outpatient (BNVA) | payer OTHER, SELFPAY | PROVIDERS: PCP Family Medicine; Referring Provider Family Medicine; Visit Provider Anesthesiology Pain Medicine | DX: G89.29 Other chronic pain (principal); M51.16 Intervertebral disc disorders with radiculopathy, lumbar region; M47.816 Spondylosis without myelopathy or radiculopathy, lumbar region; M51.36 Other intervertebral disc degeneration, lumbar region; M51.9 Unspecified thoracic, thoracolumbar and lumbosacral intervertebral disc disorder; M54.9 Dorsalgia, unspecified; M17.11 Unilateral primary osteoarthritis, right knee; F17.210 Nicotine dependence, cigarettes, uncomplicated | CPT/HCPCS: 99205 ==

== ENCOUNTER 2020-07-19 12:40 | Outpatient (CLI) | payer OTHER, SELFPAY ==
--- NOTE | 2020-07-19 13:00 | MR_ITS ---
WS: [id number] MRI THORACIC SPINE WITHOUT CONTRAST TECHNIQUE: Sagittal T1, T2 and STIR imaging. Axial T2 imaging. Noncontrast imaging obtained. CLINICAL INFORMATION: M51.9 - Unspecified thoracic, thoracolumbar and lumbosacral intervertebral disc disorder COMPARISON: None. FINDINGS: Normal thoracic alignment. No acute compression. No high-grade central canal stenosis. A few Schmorl' s nodes in the mid and lower thoracic spine. Small disc protrusions more prominent at T6-7, T7-8. Mil d central canal stenosis T6-7. Mild central canal stenosis in the lower thoracic spine T10-11. Modera te facet arthropathy in the lower thoracic spine. Mild multilevel bony foraminal narrowing more prominent at right T8-T9, bilateral T9-T10, bilateral T 10-11 and bilateral T11-T12. MR/MR thoracic spin wo con* [id number] IMPRESSION: 1. Mild thoracic curve. No acute compression. No high-grade central canal sten osis. 2. Cord signal is normal. 3. Tiny central protrusions more prominent at T6-7 and T7-8. Mild central tom l stenosis at T6-7. 4. Mild central canal stenosis at T10-T11. 5. Moderate facet arthropathy lower thoracic spine.
== END 2020-07-19 12:41 | disposition home or self-care (01) ==
LOC: RADSHAW 12:41
PROVIDERS: PCP Family Medicine; Visit Provider Anesthesiology Pain Medicine
DX: M51.9 Unspecified thoracic, thoracolumbar and lumbosacral intervertebral disc disorder (principal); M47.814 Spondylosis without myelopathy or radiculopathy, thoracic region; M48.04 Spinal stenosis, thoracic region; M51.24 Other intervertebral disc displacement, thoracic region
CPT/HCPCS: 72146

== ENCOUNTER → 2020-07-23 13:58 | Outpatient (BNVA) | payer OTHER, SELFPAY | PROVIDERS: PCP Family Medicine; Visit Provider Anesthesiology Pain Medicine | DX: M51.36 Other intervertebral disc degeneration, lumbar region (principal); M47.816 Spondylosis without myelopathy or radiculopathy, lumbar region; M54.9 Dorsalgia, unspecified | CPT/HCPCS: 62323; J1040; J3490 ==

== ENCOUNTER → 2020-07-31 08:02 | Outpatient (BNVA) | payer OTHER, SELFPAY | PROVIDERS: PCP Family Medicine; Visit Provider Family Medicine | DX: E78.5 Hyperlipidemia, unspecified (principal); I10 Essential (primary) hypertension; I25.10 Atherosclerotic heart disease of native coronary artery without angina pectoris; Z79.899 Other long term (current) drug therapy | CPT/HCPCS: 80053; 80061; 84443; 85025 ==

== ENCOUNTER → 2020-08-16 13:25 | Outpatient (BNVA) | payer OTHER, SELFPAY | PROVIDERS: PCP Family Medicine; Visit Provider Anesthesiology Pain Medicine | DX: M51.16 Intervertebral disc disorders with radiculopathy, lumbar region (principal); M47.814 Spondylosis without myelopathy or radiculopathy, thoracic region; M47.816 Spondylosis without myelopathy or radiculopathy, lumbar region; M51.36 Other intervertebral disc degeneration, lumbar region; M54.9 Dorsalgia, unspecified; M17.11 Unilateral primary osteoarthritis, right knee; M79.604 Pain in right leg; F17.210 Nicotine dependence, cigarettes, uncomplicated; Z79.891 Long term (current) use of opiate analgesic | CPT/HCPCS: 99213; 99214 ==

== ENCOUNTER → 2020-10-16 12:56 | Outpatient (BNVA) | payer OTHER, SELFPAY | PROVIDERS: PCP Family Medicine; Referring Provider Anesthesiology Pain Medicine; Visit Provider Anesthesiology Pain Medicine | DX: M47.816 Spondylosis without myelopathy or radiculopathy, lumbar region (principal); M54.9 Dorsalgia, unspecified; F17.210 Nicotine dependence, cigarettes, uncomplicated | CPT/HCPCS: 64493; 64494; 64495; J3490 ==

== ENCOUNTER → 2020-10-25 13:30 | Outpatient (BNVA) | payer OTHER, SELFPAY | PROVIDERS: PCP Family Medicine; Visit Provider Anesthesiology Pain Medicine | DX: M51.16 Intervertebral disc disorders with radiculopathy, lumbar region (principal); M54.9 Dorsalgia, unspecified; M47.816 Spondylosis without myelopathy or radiculopathy, lumbar region; M51.36 Other intervertebral disc degeneration, lumbar region; M47.814 Spondylosis without myelopathy or radiculopathy, thoracic region; M17.11 Unilateral primary osteoarthritis, right knee; F17.210 Nicotine dependence, cigarettes, uncomplicated | CPT/HCPCS: 99214 ==

== ENCOUNTER 2020-11-05 11:00 | Outpatient (CLI) | payer OTHER, SELFPAY | END 2020-11-05 11:01 | disposition home or self-care (01) | LOC: SLEEP 11-06 09:42 | PROVIDERS: PCP Family Medicine; Visit Provider Family Medicine | DX: G47.30 Sleep apnea, unspecified (principal) | CPT/HCPCS: 94762 ==

== ENCOUNTER → 2020-11-06 13:56 | Outpatient (BNVA) | payer OTHER, SELFPAY | PROVIDERS: PCP Family Medicine; Visit Provider Anesthesiology Pain Medicine | DX: M47.816 Spondylosis without myelopathy or radiculopathy, lumbar region (principal); M47.814 Spondylosis without myelopathy or radiculopathy, thoracic region; M54.9 Dorsalgia, unspecified | CPT/HCPCS: 64635; 64636; J1030 ==

== ENCOUNTER → 2020-11-20 14:00 | Outpatient (BNVA) | payer OTHER, SELFPAY | PROVIDERS: PCP Family Medicine; Visit Provider Anesthesiology Pain Medicine | DX: M47.816 Spondylosis without myelopathy or radiculopathy, lumbar region (principal); M54.9 Dorsalgia, unspecified; F17.210 Nicotine dependence, cigarettes, uncomplicated; Z79.891 Long term (current) use of opiate analgesic | CPT/HCPCS: 64635; 64636; J1030 ==

== ENCOUNTER 2020-11-30 06:49 | Outpatient (CLI) | payer OTHER, SELFPAY ==
[2020-11-30 07:02] VITALS: BMI 41.8
--- NOTE | 2020-11-30 07:02 | NMCV_ITS ---
NM trav perf SPECT r/s* [id number] JoyMili medina Age: 50 Gender: F : 1970 Exam Date: 11/30/2020 07:50 Ordering Phys: Juan Bey MD ([email or web address]) Technologist: VERITO Dasilva Exam Location: [facility] Indications: SOB/CP STRESS TEST Please see separate stress test report in [facility] for full findings IMAGE PROTOCOL Rest/Stress 1 Lexiscan Day Radiopharmaceutical Dose (mCi) Administration Site Administered by Rest: Tc-99m 10.6 IV VERITO Minaya Sestamibi Stress:Tc-99m 32.7 IV VERITO Minaya Sestamibi Rest: 30-Nov-2020 60 Discovery 630 Stress: 30-Nov-2020 30 Discovery 630 0.4mg Lexiscan. Images obtained in supine and prone position. SPECT RESULTS Technical Quality: Excellent Raw Data Analysis: Normal Image Corrections: No attenuation or motion correction applied Summed Stress Score: 8 Summed Rest Score: 8 Summed Difference Score: 4 PERFUSION FINDINGS Medium-sized area of fixed perfusion defect noted in the mid to distal anterior wall suggestive of old myocardial infarction versus scarring. FUNCTIONAL RESULTS (calculated via Gated SPECT) Stress Image LV EF (%): 76 Stress EDV (mL):83 TID: 0.98 Stress ESV (mL):20 Rest Image LV EF (%): 76 FUNCTIONAL FINDINGS: Mid to distal anterior wall akinesis IMPRESSIONS Medium-sized area of old myocardial infarction versus scarring noted in the mid to distal anterior wall suggestive of lesion in LAD territory. This study is negative for ischemia. EKG segment will be documented separately. Juan Bey MD (Electronically Signed) Final Date: 03 Dec 2020 18:37 S
--- NOTE | 2020-11-30 07:02 | ECG_ITS ---
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 The perfusion scan will be documented separately. DATA: Baseline heart rate was 87 beats per minute. Baseline blood pressure was 121/73 millimeters of mercury. Target heart rate was 168. Maximum heart rate achieved was 81. which was 48 % of the predicted target heart rate. Maximum blood pressure was 123/80 millimeters of mercury. The reason for ending the test was completion of the protocol. The patient did not experience any symptoms. ELECTROCARDIOGRAM: BASELINE: Sinus rhythm. Right axis. Interventricular conduction delay, no significant ST-T ST changes noted EXERCISE: After Lexiscan injection, no ST-T changes suggestive of ischemic noted. No arrhythmia noted. CONCLUSION: Please note due to baseline abnormality of the EKG specificity and sensitivity of the EKG portion of LexiScan MIBI stress test will be low 1. EKG not suggestive of ischemia 2. Lexiscan injection unremarkable. 3. Perfusion scan will be documented separately. Electronically Signed On 12-04-2020 18:59:06 CDT by JUAN BEY [id number]
[2020-11-30] MEDS: regadenoson 0.4 Mg/5 ml Syringe IVP (08:37)
[2020-11-30 08:45] VITALS: BP 119/72; PULSE 74
== END 2020-11-30 06:50 | disposition home or self-care (01) ==
LOC: CDL 06:50
PROVIDERS: PCP Family Medicine; Visit Provider Internal Medicine Cardiovascular Disease
DX: R06.02 Shortness of breath (principal); R07.9 Chest pain, unspecified
CPT/HCPCS: 78452; 93017; A9500; J2785

== ENCOUNTER → 2020-12-06 13:40 | Outpatient (BNVA) | payer OTHER, SELFPAY | PROVIDERS: PCP Family Medicine; Visit Provider Anesthesiology Pain Medicine | DX: M54.9 Dorsalgia, unspecified (principal); M51.16 Intervertebral disc disorders with radiculopathy, lumbar region; M17.11 Unilateral primary osteoarthritis, right knee; M47.816 Spondylosis without myelopathy or radiculopathy, lumbar region; M51.36 Other intervertebral disc degeneration, lumbar region; M47.814 Spondylosis without myelopathy or radiculopathy, thoracic region; F17.210 Nicotine dependence, cigarettes, uncomplicated; Z79.891 Long term (current) use of opiate analgesic | CPT/HCPCS: 99213 ==

== ENCOUNTER 2020-12-07 09:19 | Outpatient (CLI) | payer OTHER, SELFPAY ==
--- NOTE | 2020-12-07 09:30 | US_ITS ---
WS: [id number] ULTRASOUND THYROID TECHNIQUE: Ultrasound of the thyroid. CLINICAL INFORMATION: right sided thyroid nodule COMPARISON: Ultrasound 11 [id number] FINDINGS: Thyroid: Right and left thyroid lobes are normal in size and echotexture. Hypoechoic solid nodule rig ht lower lobe measuring 7.5 x 6.0 x 7.9 mm Right thyroid lobe: 5.6 cm x 2.1 cm x 1.6 cm Left thyroid lobe: 5.1 cm x 1.7 cm x 2.0 cm. Isthmus: 0.5 mm. Cervical lymphadenopathy: None. US/US thyroid [id number] IMPRESSION: 1. Hypoechoic solid nodule right lower lobe measuring 7.5 x 6.0 x 7.9 mm. This is unchanged since 2018 2. No left thyroid nodules.
== END 2020-12-07 09:20 | disposition home or self-care (01) ==
LOC: US 09:20
PROVIDERS: PCP Family Medicine; Visit Provider Family Medicine
DX: E04.1 Nontoxic single thyroid nodule (principal)
CPT/HCPCS: 76536

== ENCOUNTER → 2021-01-29 08:11 | Outpatient (BNVA) | payer OTHER, SELFPAY | PROVIDERS: PCP Family Medicine; Visit Provider Family Medicine | DX: J20.9 Acute bronchitis, unspecified (principal) | CPT/HCPCS: 71046 ==

== ENCOUNTER 2021-02-02 16:43 | Emergency (ER) | payer OTHER, SELFPAY ==
[2021-02-02 16:57] VITALS: BP 118/76; PULSE 84; RESP 18; TEMP 36.8; O2SAT 95; BMI 40.8
--- NOTE | 2021-02-02 17:34 | XRR_ITS ---
PROCEDURE INFORMATION: Exam: XR Left Ribs with PA Chest Exam date and time: 02/02/2021 5:34 PM Age: 50 years old Clinical indication: Other: Left posteriior mid rib pain TECHNIQUE: Imaging protocol: XR Left ribs with PA chest. Views: 3 views COMPARISON: CR XR chest 2V* [id number] 01/29/2021 9:44 AM FINDINGS: Lungs: There is mild increased density in the left lung base compatible with mild atelectasis versus pneumonitis increased since the prior exam. The right lung is clear. A few scattered calcified pulmonary granulomas are noted. Pleural spaces: There is no evidence of pneumothorax. Heart/Mediastinum: The heart is enlarged. Bones/joints: There is a fracture of the lateral aspect of the left 9th and 10th ribs. XR/XR ribs LT 2V* [id number] IMPRESSION: 1. There is mild increased density in the left lung base compatible with mild atelectasis versus pneumonitis increased since the prior exam. 2. There is a fracture of the lateral aspect of the left 9th and 10th ribs.
--- NOTE | 2021-02-02 17:37 | ED_ITS ---
HPI - Back Pain/Injury General: Chief Complaint: Back Pain/Injury Stated Complaint: Pain in L side ribs Time Seen by Provider: 02/02/21 17:18 History of Present Illness: HPI Narrative: Patient states that she was lifting more deck on and her back started hurting in her rib area the next morning. Said she had broke a rib before just coughing and thinks maybe she had a rib that fractured. Complains about pain left-sided back middle of the rib area. MD elicited complaint: other (Rib pain) Pertinent past history: prior back pain Onset (ago): day(s) Timing: constant and progressively worsening Severity: moderate Quality: sharp Location: left upper back Radiation: none Exacerbating factors: movement Relieving factors: immobilization Context: while lifting and turning/twisting Associated symptoms: Reports no associated symptoms Review of Systems Narrative: Complains of rib pain left side posterior back injured while lifting Musc: Reports: other (Rib pain) Skin/Breast: Denies: rash Psych: Denies: anxiety or depression PFS ED PFSH: Medical History Coronary artery disease 10/2015: History of [place]. History of posterior inferior wall [place] without obstructive coronary artery disease or small vessel disease with spasm induced coronary ischemia. Depression with anxiety Essential hypertension Gastroesophageal reflux History of DVT (deep vein thrombosis) Hyperlipidemia Hypothyroidism Menopause Not a candidate for HRT due to history of DVT. Osteoarthritis of right knee Vaginal polyp Surgical History H/O carpal tunnel repair (~2017) Right H/O colonoscopy 11/06/14 repeat in 10 yrs History of arthroscopic knee surgery (06/10/17) Left. Performed by Dr. Roblero at [facility] [place]. History of cholecystectomy (09/03/14) Laparoscopic. Performed by Dr. Garcia at [facility] [place]. History of total hysterectomy (01/13/17) MELANY BETTS.Dx: DUB. Performed by Dr. Colmenares at [facility] [place]. History of tubal ligation (~11/1993) Family History Father Hypertension Grandmother Hypertension Maternal Diabetes Maternal Heart disease Maternal Stroke Maternal Hypothyroidism Maternal Mother Hypothyroidism Grandmother Breast cancer Paternal Ovarian cancer Paternal Other Hypercholesterolemia Social History (Updated 01/23/21 @ 10:58 by Jessi Cook LPN) Smoking and tobacco status: current every day smoker cigarettes Packs smoked per day: 2 Years cigarettes smoked: 36 Second hand smoke exposure: Yes Smoking risk assessment/counseling performed?: Yes Alcohol intake: never Counseling given: No Counseling given: No Lives independently: Yes Household members: family Current occupational status: employed Current occupation: [employer] [facility] [place] History of recent travel: No Current gender identity: Female Physical Exam Const: COMMON NORMALS: no acute distress GENERAL APPEARANCE: cooperative Chest: OTHER: Tenderness to the posterior aspect middle of the ribs left side to palpation no swelling bruising noted Psych: COMMON NORMALS: mental status grossly normal Course Vital Signs: Vital signs: Vital Signs Temperature 98.2 F 02/02/21 16:57 Pulse Rate 84 02/02/21 16:57 Respiratory Rate 18 02/02/21 16:57 Blood Pressure 118/76 02/02/21 16:57 Pulse Oximetry 95 02/02/21 16:57 MDM - Back Pain/Injury MDM Narrative: Medical decision making narrative: Called and left a message on patient's phone over. Of couple hours. Patient called back at 2123. I shared results of her radiology report showing fracture ribs ninth and 10th rib. She has hydrocodone at home to take. Has Celebrex prescribed. I recommended she apply ice area. Recommend follow-up with her primary care provider and see why she has had rib fractures x2 without direct blow to the ribs. Just evaluate for osteopenia or osteoporosis. And recheck to make sure that ribs are healing well. Patient agrees with plan said she will contact her. Discharge Plan Discharge Patient Disposition: Home Clinical Impression: Rib pain on left side Left rib fracture Qualifiers: Encounter type: initial encounter Rib fracture type: multiple ribs Fracture type: closed Qualified Code(s): S22.42XA - Multiple fractures of ribs, left side, initial encounter for closed fracture Condition: Stable Prescriptions: New Celebrex 100 mg capsule 100 mg PO BID Qty: 20 RF: 0 No Action aspirin [Adult Aspirin Regimen] 81 mg tablet,delayed release (DR/EC) 81 mg PO QAM RF: 0 methylprednisolone acetate 80 mg/mL suspension 80 mg IM ONCE Qty: 1 RF: 0 sodium chloride 0.9 % Solution 5 ml epidural ONCE Qty: 1 RF: 0 methylprednisolone acetate [Depo-Medrol] 40 mg/mL suspension 40 mg Infiltration ONCE Qty: 1 RF: 0 lidocaine (PF) 10 mg/mL (1 %) solution 10 mg SUBCUT ONCE Qty: 1 RF: 0 furosemide 20 mg tablet 20 mg PO DAILY RF: 0 potassium chloride 10 mEq tablet extended release 10 meq PO DAILY RF: 0 fluticasone propion-salmeterol [Advair Diskus] 250-50 mcg/dose blister with device 1 inh INHALATION BID Qty: 60 RF: 1 sodium chloride 0.9 % Solution 5 ml epidural ONCE Qty: 1 RF: 0 methylprednisolone acetate [Depo-Medrol] 40 mg/mL suspension 40 mg Infiltration ONCE Qty: 1 RF: 0 lidocaine (PF) 10 mg/mL (1 %) solution 10 mg SUBCUT ONCE Qty: 1 RF: 0 nitroglycerin [Nitrostat] 0.4 mg tablet, sublingual 0.4 mg SUBLINGUAL Q5M PRN (Reason: Chest Pain) Qty: 30 RF: 2 betamethasone acet,sod phos [Celestone Soluspan] 6 mg/mL suspension 6 mg intra-articular ONCE Qty: 1 RF: 0 bupivacaine (PF) 0.5 % (5 mg/mL) solution 10 mg intra-articular ONCE Qty: 2 RF: 0 lidocaine (PF) 10 mg/mL (1 %) solution 20 mg intra-articular ONCE Qty: 2 RF: 0 pregabalin [Lyrica] 25 mg capsule 25 mg PO BID Qty: 60 RF: 0 alprazolam 0.5 mg tablet 0.25 mg PO .QHS PRN (Reason: anxiety) RF: 0 fluticasone propionate [Flonase Allergy Relief] 50 mcg/actuation spray,suspension 2 spray INTRANASAL DAILY Qty: 15.8 RF: 2 hydrochlorothiazide 25 mg tablet 25 mg PO DAILY 30 Days Qty: 30 RF: 5 venlafaxine [Effexor XR] 75 mg capsule,extended release 24hr 150 mg PO QAM Qty: 120 RF: 2 (DME) OXYGEN TO BE BLED INTO CPAP 2L WITH CONTINUOUS USE See Rx Instructions .Route .MEDSUPPLY Qty: 1 RF: 0 levothyroxine 50 mcg tablet 50 mcg PO DAILY Qty: 90 RF: 0 amlodipine 5 mg tablet 5 mg PO QAM Qty: 90 RF: 1 atenolol 50 mg tablet 25 mg PO QAM Qty: 90 RF: 1 hydrocodone-acetaminophen 5-325 mg tablet 0.5 - 1 tab PO Q12H PRN (Reason: pain) 30 Days Qty: 31 RF: 0 armodafinil 150 mg tablet 150 mg PO QAM Qty: 30 RF: 3 albuterol sulfate 90 mcg/actuation HFA aerosol inhaler 2 inh INHALATION Q4H PRN (Reason: shortness of breath or wheezing) Qty: 8.5 RF: 1 calcium carb-mag oxide-zinc ox 334-134-5 mg Tablet 1 tab PO DAILY RF: 0 Voltaren 1 % gel 2 gm TOPICAL BID PRN (Reason: unknown) RF: 0 Discharge Orders: Discharge ED (Routine); Ordered 02/02/21 Ordered By: Juan Carlos Crockett Referrals: Anne Marie Augustin DO [Primary Care Provider] - Discharge Diet: Usual diet Discharge Activity: Increase activity as tolerated Activity Restrictions/Additional Instructions: Follow-up with medical provider as directed. Take medications as prescribed. Return to the ER or your medical provider if condition worsens. Please read and understand discharge instructions. If any questions ask please. Can apply ice to area for discomfort. Can take pain medicine that you have at home that has been prescribed to help with discomfort. Coding Level of Care Code ED Chassis Wirer for Keyanna Fwd Exam Expanded Problem Focused
[2021-02-02] MEDS: CELEcoxib 200 mg Capsule 400 MG PO (18:30)
== END 2021-02-02 21:45 | disposition home or self-care (01) ==
PROVIDERS: Emergency Provider Nurse Practitioner Family; PCP Family Medicine
DX: S22.42XA Multiple fractures of ribs, left side, initial encounter for closed fracture (principal); Z79.82 Long term (current) use of aspirin; I25.10 Atherosclerotic heart disease of native coronary artery without angina pectoris; I10 Essential (primary) hypertension; E78.5 Hyperlipidemia, unspecified; F17.210 Nicotine dependence, cigarettes, uncomplicated; X50.0XXA Overexertion from strenuous movement or load, initial encounter
CPT/HCPCS: 71100; 99283

== ENCOUNTER 2021-02-13 14:27 | Outpatient (CLI) | payer OTHER, SELFPAY ==
--- NOTE | 2021-02-13 14:45 | XR_ITS ---
WS: [id number] SCREENING DEXA SCAN [employer] CLINICAL INFORMATION: pain COMPARISON: None. FINDINGS: The L1-L4 bone mineral density measures 1.104 g/cm2. This corresponds to a T score score of -0.6 and Z score of -1.2. Left femoral neck bone mineral density measures 0.989 g/cm2. This corresponds to a T score of -0.1 an d Z score of -0.4. Right femoral neck bone mineral density measures 1.015 g/cm2. This corresponds to a T score 0.1of and Z score of -0.2. Mean femoral neck bone mineral density measures 1.002 g/cm2. This corresponds to a T score of 0.0 and Z score of -0.3. XR/XR DEXA axial skeleton* [id number] IMPRESSION: Normal bone mineralization. Patient's FRAX calculated 10 year probability for major osteoporotic fracture i s 8.6 % and osteoporotic hip fracture is 1.1%.
== END 2021-02-13 14:28 | disposition home or self-care (01) ==
PROVIDERS: PCP Family Medicine; Visit Provider Family Medicine
DX: R07.81 Pleurodynia (principal)
CPT/HCPCS: 77080

== ENCOUNTER → 2021-05-23 09:34 | Outpatient (BNVA) | payer OTHER, SELFPAY | PROVIDERS: PCP Family Medicine; Visit Provider Family Medicine | DX: E03.9 Hypothyroidism, unspecified (principal); I10 Essential (primary) hypertension; F41.8 Other specified anxiety disorders; M17.11 Unilateral primary osteoarthritis, right knee | CPT/HCPCS: 84443 ==

== ENCOUNTER 2021-08-06 10:21 | Outpatient (CLI) | payer OTHER, SELFPAY ==
--- NOTE | 2021-08-06 10:30 | MM_ITS ---
WS: [id number] Exam: [place] [id number] Date/Time of Exam: 08/06/2021 10:30 AM Reason For Exam: screening mammogram VIEWS: MLO and CC views both breasts. Comparison made with prior exam of 05/09/2016, 09/15/2017 and 11/17/2018.. Findings: There was no sign of mass, architectural distortion or suspicious calcification in either breast. He terogeneously dense MM/[place] [id number] Impression: BI-RADS: 2 FOLLOW-UP: 1 Year Follow-up This mammogram was also analyzed by the Computer Aided Detection System R2 Imag e Medical Surgery Nurse.
== END 2021-08-06 10:22 | disposition home or self-care (01) ==
LOC: RADSHAW 10:24
PROVIDERS: PCP Family Medicine; Visit Provider Family Medicine
DX: Z12.31 Encounter for screening mammogram for malignant neoplasm of breast (principal); R10.9 Unspecified abdominal pain
CPT/HCPCS: 77067; 81000

== ENCOUNTER 2021-08-06 15:13 | Outpatient (CLI) | payer OTHER, SELFPAY ==
--- NOTE | 2021-08-06 15:28 | XRR_ITS ---
PROCEDURE INFORMATION: Exam: XR Right Ribs Exam date and time: 08/06/2021 3:28 PM Age: 51 years old Clinical indication: Chest wall pain; Right; Patient HX: RT lower rib pain for 1 week, no known trauma; Additional info: Right rib pain TECHNIQUE: Imaging protocol: XR Right ribs. Views: 2 views. COMPARISON: CR XR chest 2V* [id number] 01/29/2021 9:44 AM FINDINGS: Bones/joints: No evidence of right rib fracture. Soft tissues: Normal. XR/XR ribs RT 2V* [id number] IMPRESSION: No acute findings.
== END 2021-08-06 15:14 | disposition home or self-care (01) ==
PROVIDERS: PCP Family Medicine; Visit Provider Family Medicine
DX: R07.81 Pleurodynia (principal)
CPT/HCPCS: 71100

== ENCOUNTER → 2021-08-16 13:27 | Outpatient (BNVA) | payer OTHER, SELFPAY | PROVIDERS: PCP Family Medicine; Visit Provider Family Medicine | DX: L81.9 Disorder of pigmentation, unspecified (principal) | CPT/HCPCS: 88304 ==

== ENCOUNTER → 2021-10-01 09:45 | Outpatient (BNVA) | payer OTHER, SELFPAY | PROVIDERS: PCP Family Medicine; Visit Provider Family Medicine | DX: I10 Essential (primary) hypertension (principal); M51.36 Other intervertebral disc degeneration, lumbar region; E03.9 Hypothyroidism, unspecified; G47.33 Obstructive sleep apnea (adult) (pediatric); Z79.891 Long term (current) use of opiate analgesic | CPT/HCPCS: 80307 ==

== ENCOUNTER → 2022-01-08 10:12 | Outpatient (BNVA) | payer OTHER, SELFPAY | PROVIDERS: PCP Family Medicine; Referring Provider Family Medicine; Visit Provider Specialist | DX: M25.562 Pain in left knee (principal); M25.462 Effusion, left knee | CPT/HCPCS: 73560; 73565 ==

== ENCOUNTER → 2022-05-07 10:31 | Outpatient (BNVA) | payer OTHER, SELFPAY | PROVIDERS: PCP Family Medicine; Visit Provider Family Medicine | DX: J06.9 Acute upper respiratory infection, unspecified (principal) | CPT/HCPCS: 87426 ==

== ENCOUNTER → 2022-05-16 09:38 | Outpatient (BNVA) | payer OTHER, SELFPAY | PROVIDERS: PCP Family Medicine; Visit Provider Family Medicine | DX: I10 Essential (primary) hypertension (principal); E78.5 Hyperlipidemia, unspecified; E03.9 Hypothyroidism, unspecified; Z01.89 Encounter for other specified special examinations; U07.1 COVID-19 | CPT/HCPCS: 71046; 80053; 80061; 82043; 83036; 84443; 85025 ==

== ENCOUNTER → 2022-05-29 10:08 | Outpatient (BNVA) | payer OTHER, SELFPAY | PROVIDERS: PCP Family Medicine; Visit Provider Family Medicine | DX: E87.6 Hypokalemia (principal) | CPT/HCPCS: 80048; 83735 ==

== ENCOUNTER → 2022-06-09 12:37 | Outpatient (BNVA) | payer OTHER, SELFPAY | PROVIDERS: PCP Family Medicine; Visit Provider Family Medicine | DX: E87.6 Hypokalemia (principal) | CPT/HCPCS: 80053; 83735 ==

== ENCOUNTER → 2022-06-12 15:17 | Outpatient (BNVA) | payer OTHER, SELFPAY | PROVIDERS: PCP Family Medicine; Visit Provider Registered Nurse Neonatal Intensive Care | DX: R50.9 Fever, unspecified (principal) | CPT/HCPCS: 87400; 87426 ==

== ENCOUNTER → 2022-08-12 11:17 | Outpatient (BNVA) | payer OTHER, SELFPAY | PROVIDERS: PCP Family Medicine; Visit Provider Family Medicine | DX: E87.6 Hypokalemia (principal) | CPT/HCPCS: 80053; 83735 ==

== ENCOUNTER 2022-08-14 07:13 | Day surgery (SDC) | payer OTHER, SELFPAY ==
[2022-08-12 12:39] VITALS: BMI 38.0
[2022-08-14 07:30] VITALS: BP 117/72; PULSE 70; RESP 18; TEMP 36.1; O2SAT 95
[2022-08-14] MEDS: sodium chloride 0.9% 1,000 ML 30 ML IV (07:38)
--- NOTE | 2022-08-14 07:58 | W.PM.OPSUD ---
Surgery/Procedure H&P Update DATE OF PROCEDURE: August 14, 2022 DATE H&P PERFORMED: 07/22/22 PLANNED PROCEDURE: Operation Date: 08/14/22 08:45 Proposed Procedures p EGD [id number],K21.9(Not Applicable) - Bud Salvador DO
--- NOTE | 2022-08-14 08:09 | P.ANESASSM_ITS ---
Pre-Anesthetic Assessment Height/Weight: Height 1.63 m Weight 100.698 kg Temp Pulse Resp BP Pulse Ox O2 Del Method 97.0 F L 70 18 117/72 95 08/14/22 07:30 08/14/22 07:30 08/14/22 07:30 08/14/22 07:30 08/14/22 07:30 08/14/22 07:30 Operation Date: 08/14/22 08:45 Proposed Procedures p EGD [id number],K21.9(Not Applicable) - Bud Salvador DO Familial anesthetic complications: None Was Beta Hanna taken within 24 hours: Yes Was Clonidine taken within 24 hours: N/A Last intake: Intake Last Liquid Date 08/13/22 Last Liquid Time 20:00 Last Solid Date 08/13/22 Last Solid Time 17:00 Social Tobacco and No alcohol 1 pack(s) per day 38 pack years Exam alert, oriented x 3, clear to auscultation bilaterally and regular rate & rhythm Airway Submandibular: within normal limits Cervical ROM: within normal limits Mallampati: Class III Dentition: false History/ROS No significant history except as noted and No significant complaints Pulmonary Chronic Obstructive Pulmonary Disease, Exertional Dyspnea, Sleep Apnea and Upper Respiratory Infection (June 2022) CV/HEM Stable Angina (Nitroglycerin last used June), Coronary Artery Disease, Deep Vein Thrombosis, Hypertension and Myocardial Infarction (Stress related) None reported Hepatic None reported GI Gastroesophageal Reflux Disease Metabolic Hyperlipidemia and Thyroid Disease Musc/skel Lower Back Pain, Osteoarthritis/DJD, Scoliosis and Weakness Neuropsych Anxiety and Depression Anesthetic Plan ASA status: 3 Anesthesia: Anesthesia Evaluation, General and MAC Risk of > 500 ml blood loss (7ml/kg in children): No Medications/Allergies Home Medications Medication Instructions Recorded Confirmed Last Taken Type aspirin 81 mg tablet,delayed 81 mg PO QAM 07/24/19 08/14/22 08/12/22 History release (Adult Aspirin Regimen) calcium carbonate 334 mg-magnesium 1 tab PO DAILY 09/26/19 08/14/22 08/13/22 History oxide 134 mg-zinc oxide 5 mg tablet OXYGEN TO BE BLED INTO CPAP 2L #1 ea 11/08/20 08/14/22 Unknown Rx WITH CONTINUOUS USE nitroglycerin 0.4 mg sublingual 0.4 mg sublingual Q5M PRN Chest 12/04/21 08/14/22 Unknown Rx tablet (Nitrostat) Pain #30 tabs diclofenac sodium 1 % topical gel 2 g topical BID PRN pain #100 grams 01/02/22 08/14/22 Unknown Rx alprazolam 0.25 mg tablet 0.25 mg PO .QHS PRN anxiety #35 04/04/22 08/14/22 08/14/22 Rx tabs armodafinil 200 mg tablet 200 mg PO QAM #30 tabs 04/29/22 08/14/22 08/13/22 Rx levothyroxine 50 mcg tablet 50 mcg PO DAILY 90 days #90 tabs 05/19/22 08/14/22 08/14/22 Rx ondansetron 4 mg disintegrating 4 mg PO Q8H PRN nausea and 06/19/22 08/14/22 Unknown Rx tablet vomiting 7 days #20 tabs atenolol 50 mg tablet 25 mg PO QAM #90 tabs 07/18/22 08/14/22 08/14/22 Rx venlafaxine 75 mg capsule,extended 150 mg PO QAM 90 days #180 caps 07/18/22 08/14/22 08/14/22 Rx release 24 hr (Effexor XR) meloxicam 15 mg tablet 15 mg PO DAILY PRN legs pain 07/22/22 08/14/22 Unknown History pantoprazole 40 mg tablet,delayed 40 mg PO BID 6 weeks #84 tabs 07/22/22 08/14/22 08/14/22 Rx release (Protonix) hydrocodone 5 mg-acetaminophen 325 0.5 - 1 tab PO Q12H PRN pain 30 08/11/22 08/14/22 08/13/22 Rx mg tablet days #45 tabs amlodipine 5 mg tablet 5 mg PO DAILY 08/12/22 08/14/22 08/14/22 History furosemide 20 mg tablet 20 mg PO DAILY 08/12/22 08/14/22 08/13/22 History hydrochlorothiazide 25 mg tablet 25 mg PO DAILY 08/12/22 08/14/22 08/13/22 History potassium chloride 10 mEq 20 meq PO DAILY 08/12/22 08/14/22 08/13/22 History tablet,extended release pregabalin 25 mg capsule (Lyrica) 25 mg PO BID PRN leg pain 08/12/22 08/14/22 Unknown History Allergies Allergy/AdvReac Type Severity Reaction Status Date / Time No Known Allergies Allergy Verified 08/14/22 07:27 Current Medications Generic Name Dose Route Start Last Admin Trade Name Emanuel PRN Reason Stop Dose Admin Sodium Chloride 1,000 mls @ 30 mls/hr 08/14/22 07:30 08/14/22 07:38 Sodium Chloride 0.9% IV 08/15/22 07:29 30 mls/hr .Q24H CONRADO Administration PFSH Anesthesia Medical History Coronary artery disease 10/2015: History of [place]. History of posterior inferior wall [place] without obstructive coronary artery disease or small vessel disease with spasm induced coronary ischemia. Depression with anxiety Essential hypertension Gastroesophageal reflux History of DVT (deep vein thrombosis) Hyperlipidemia Hypothyroidism Menopause Not a candidate for HRT due to history of DVT. Osteoarthritis of right knee Vaginal polyp Surgical History H/O carpal tunnel repair (~2017) Right H/O colonoscopy 11/06/14 repeat in 10 yrs History of arthroscopic knee surgery (06/10/17) Left. Performed by Dr. Roblero at [facility] [place]. History of cholecystectomy (09/03/14) Laparoscopic. Performed by Dr. Garcia at [facility] [place]. History of total hysterectomy (01/13/17) MELANY BETTS.Dx: DUB. Performed by Dr. Colmenares at [facility] [place]. History of tubal ligation (~11/1993) Family History Father Hypertension Grandmother Hypertension Maternal Diabetes Maternal Heart disease Maternal Stroke Maternal Hypothyroidism Maternal Mother Hypothyroidism Grandmother Breast cancer Paternal Ovarian cancer Paternal Other Hypercholesterolemia Social History Smoking and tobacco status: current every day smoker cigarettes Packs smoked per day: 2 Years cigarettes smoked: 36 Second hand smoke exposure: Yes Smoking risk assessment/counseling performed?: Yes Alcohol intake: never Counseling given: No Counseling given: No Lives independently: Yes Household members: family Current occupational status: employed Current occupation: [employer] [facility] [place] History of recent travel: No Current gender identity: Female Data Anesthesia Cardiac Studies: Echocardiogram Ultrasound 09/27/19 Sestamibi Stress Test (Cardiology) 11/30
[2022-08-14] MEDS: midazolam 1 mg/mL INJ 2 mL 2 MG IVP (08:18)
[2022-08-14 09:15] VITALS: BP 108/64; PULSE 65; RESP 16; TEMP 36.3; O2SAT 98
[2022-08-14 09:25] VITALS: BP 118/72; PULSE 66; RESP 16; O2SAT 94
[2022-08-14 09:45] VITALS: BP 111/70; PULSE 65; RESP 16; O2SAT 94
--- NOTE | 2022-08-14 14:20 | ANE.PACU2 ---
Inpatient post-anesthesia follow up: Airway intact: Yes Vital signs: Temperature 97.4 F Pulse Rate 65 Respiratory Rate 16 Blood Pressure 111/70 Pulse Oximetry 94 Oxygen Delivery Me thod Room Air Oxygen Flow Rate 4 Fraction of Inspir ed Oxygen Hydration adequate: Yes Nausea and vomiting: No Pain level: 1 Mental status: Baseline
== END 2022-08-14 09:55 | disposition home or self-care (01) ==
PROVIDERS: PCP Family Medicine; Visit Provider Surgery
PROC: 0DJ08ZZ Inspection of Upper Intestinal Tract, Via Natural or Artificial Opening Endoscopic (ICD-10-PCS; CPT 43235; principal; 2022-08-14 08:45)
DX: K21.9 Gastro-esophageal reflux disease without esophagitis (principal); K29.50 Unspecified chronic gastritis without bleeding; B96.81 Helicobacter pylori [H. pylori] as the cause of diseases classified elsewhere; F17.210 Nicotine dependence, cigarettes, uncomplicated; J44.9 Chronic obstructive pulmonary disease, unspecified; G47.30 Sleep apnea, unspecified; I25.10 Atherosclerotic heart disease of native coronary artery without angina pectoris; I50.9 Heart failure, unspecified; I10 Essential (primary) hypertension; I25.2 Old myocardial infarction; E78.5 Hyperlipidemia, unspecified; Z79.82 Long term (current) use of aspirin; Z86.718 Personal history of other venous thrombosis and embolism; E03.9 Hypothyroidism, unspecified
CPT/HCPCS: 43239; 88305; J2250; J2704; J7030

== ENCOUNTER → 2022-08-28 14:14 | Outpatient (BNVA) | payer OTHER, SELFPAY | PROVIDERS: PCP Family Medicine; Visit Provider Family Medicine | DX: E87.6 Hypokalemia (principal); Z13.6 Encounter for screening for cardiovascular disorders; S29.019A Strain of muscle and tendon of unspecified wall of thorax, initial encounter; X58.XXXA Exposure to other specified factors, initial encounter | CPT/HCPCS: 80048; 80061; 82947; 83036 ==

== ENCOUNTER → 2022-09-23 11:56 | Outpatient (BNVA) | payer OTHER, SELFPAY | PROVIDERS: PCP Family Medicine; Visit Provider Surgery | DX: K21.9 Gastro-esophageal reflux disease without esophagitis (principal); R10.9 Unspecified abdominal pain | CPT/HCPCS: 87338 ==

== ENCOUNTER → 2022-09-25 11:40 | Outpatient (BNVA) | payer OTHER, SELFPAY | PROVIDERS: PCP Family Medicine; Visit Provider Family Medicine | DX: E87.6 Hypokalemia (principal); I10 Essential (primary) hypertension | CPT/HCPCS: 80048; 85025 ==

== ENCOUNTER 2022-11-05 12:57 | Outpatient (CLI) | payer OTHER, SELFPAY ==
--- NOTE | 2022-11-05 13:10 | MM_ITS ---
WS: [id number] Bilateral screening 3D tomosynthesis digital mammogram, 11/05/2022 Clinical Data: SCREENING Comparison: 08/06/2021, 11/17/2018, 09/15/2017, 05/09/2016, 06/29/2015, 05/04/2015, 11/25/2013, 09/27/2012. Findings: The breast parenchymal pattern shows heterogeneous density. No spiculated masses or clustered calcifi cations are seen. There are no secondary signs of carcinoma. There are mole markers on both breasts. Impression: 1. Negative bilateral mammogram unchanged. 2. Recommend annual screening mammograms. MM/[place] [id number] BIRADS: 1-Negative FOLLOW UP: 1 Year Follow-up The CAD schedule checker was used.
== END 2022-11-05 12:58 | disposition home or self-care (01) ==
LOC: RAD 13:00
PROVIDERS: PCP Family Medicine; Visit Provider Family Medicine
DX: Z12.31 Encounter for screening mammogram for malignant neoplasm of breast (principal)
CPT/HCPCS: 77063; 77067

== ENCOUNTER → 2022-11-21 13:56 | Outpatient (BNVA) | payer OTHER, SELFPAY | PROVIDERS: PCP Family Medicine; Visit Provider Nurse Practitioner | DX: M62.830 Muscle spasm of back (principal); M54.50 Low back pain, unspecified | CPT/HCPCS: 81000; 87086 ==

== ENCOUNTER → 2023-01-05 09:09 | Outpatient (BNVA) | payer OTHER, SELFPAY | PROVIDERS: PCP Family Medicine; Visit Provider Family Medicine | DX: I10 Essential (primary) hypertension (principal) | CPT/HCPCS: 80053; 80061; 85025 ==

== ENCOUNTER 2023-01-07 06:41 | Outpatient (CLI) | payer OTHER, SELFPAY ==
--- NOTE | 2023-01-07 06:46 | US_ITS ---
WS: [id number] RIGHT UPPER QUADRANT ULTRASOUND HISTORY: vascular ectasia of duodenum COMPARISON: 04/16/2020 Liver: 16.9 cm in length. Normal size liver and echogenicity. No bile duct dilatation or mass. Portal Vein: Normal hepatopetal flow with monophasic waveform. Gallbladder: Status post cholecystectomy. CBD: 0.8 cm Pancreas: Normal size and echogenicity. Right kidney: 12.0 cm in length. Normal size and echogenicity. No hydronephrosis or mass. Aorta and IVC: Unremarkable abdominal aorta and IVC. No ascites. US/US liver [id number] IMPRESSION: 1. Status post cholecystectomy. 2. Normal liver. 3. No bile duct dilatation.
== END 2023-01-07 06:42 | disposition home or self-care (01) ==
PROVIDERS: PCP Family Medicine; Visit Provider Family Medicine
DX: K31.819 Angiodysplasia of stomach and duodenum without bleeding (principal)
CPT/HCPCS: 76705

== ENCOUNTER → 2023-05-18 08:34 | Outpatient (BNVA) | payer OTHER, SELFPAY | PROVIDERS: PCP Family Medicine; Visit Provider Family Medicine | DX: F41.8 Other specified anxiety disorders (principal); E03.9 Hypothyroidism, unspecified | CPT/HCPCS: 84443 ==

== ENCOUNTER 2023-06-15 10:26 | Outpatient (CLI) | payer OTHER, SELFPAY ==
--- NOTE | 2023-06-15 11:00 | USCV_ITS ---
Mili Be Age: 52 Gender: F : 1970 Exam Date: 06/15/2023 11:11 Ordering Phys: Rodrigo Vang MD Technologist: Claudette Lew Exam Location: [facility] [place] [facility] [place] Indication: history SD, SOB, cp BP: 126 / 88 HR: 65 Rhythm: Sinus Technical Quality: Adequate MEASUREMENTS (Male / Female) Normal Values 2D ECHO LV Diastolic Diameter PLAX 4.6 cm 4.2 - 5.9 / 3.9 - 5.3 cm LV Systolic Diameter PLAX 2.5 cm IVS Diastolic Thickness 1.3 cm 0.6 - 1.0 / 0.6 - 0.9 cm IVS Systolic Thickness 1.9 cm LVPW Diastolic Thickness 1.1 cm 0.6 - 1.0 / 0.6 - 0.9 cm LVPW Systolic Thickness 1.7 cm LVOT Diameter 2.0 cm LV Ejection Fraction 2D Teich 78.0 % LV Ejection Fraction MOD 2C 67.9 % LV Ejection Fraction 2C AL 69.1 % LA Diameter 3.7 cm LA Width 2.0 cm LA Height 5.2 cm RA Width 2.9 cm RA Height 4.5 cm Aorta at Sinotubular Diameter 3.0 cm IVC Diameter 2.0 cm M-MODE Aortic Annulus Diameter 3.3 cm LA Ao Ratio MM 1.2 MV E Point Septal Separation 0.6 cm DOPPLER AV Peak Velocity 165.0 cm/s LVOT Peak Velocity 146.0 cm/s AV Area Cont Eq vti 3.0 cm squared AV Area Cont Eq pk 2.8 cm squared MV Peak Velocity 94.0 cm/s MV Area PHT 3.0 cm squared Mitral E to A Ratio 0.9 MV E' Velocity 55.5 cm/s Mitral E to MV E' Ratio 11.4 Mitral E to LV E' Lateral Ratio 9.7 Mitral E to LV E' Septal Ratio 14.0 TR Peak Velocity 156.7 cm/s TR Peak Gradient 9.8 mmHg Right Atrial Pressure 5.0 mmHg Pulmonary Artery Systolic Pressu 14.8 mmHg PV Peak Velocity 89.0 cm/s RV Acceleration Time 0.1 s RV Ejection Time 0.3 s RV AcT/ET 0.5 FINDINGS Left Ventricle Normal left ventricular size, systolic function and wall thickness, with no regional wall motion abnormalities. Left ventricular ejection fraction is estimated at 65%. Right Ventricle Normal right ventricular size and systolic function. Right Atrium Normal right atrial size. Left Atrium Normal left atrial size. Mitral Valve Structurally normal mitral valve. Aortic Valve Structurally normal trileaflet aortic valve. Tricuspid Valve Structurally normal tricuspid valve. Trace tricuspid valve regurgitation. Pulmonic Valve Structurally normal pulmonic valve. Trace pulmonary valve regurgitation. Pericardium No pericardial effusion. Aorta Normal size aortic root and proximal ascending aorta. IVC Normal IVC dimension with >50% respiratory change of the inferior vena cava. CONCLUSIONS Normal left ventricular function, no LVH. Estimated estimated LVEF normal 65%. Normal chamber sizes. No significant valvular abnormality noted. Normal right heart and pulmonary pressures. Cecilia Bright MD (Electronically Signed) Final Date: 16 June 2023 09:16 S
== END 2023-06-15 10:27 | disposition home or self-care (01) ==
LOC: RAD 10:26
PROVIDERS: PCP Family Medicine; Visit Provider Family Medicine
DX: R60.0 Localized edema (principal); I10 Essential (primary) hypertension; I25.2 Old myocardial infarction
CPT/HCPCS: 93306

== ENCOUNTER 2024-02-15 11:20 | Outpatient (CLI) | payer OTHER, SELFPAY | END 2024-02-15 11:21 | disposition home or self-care (01) | LOC: SLEEP 11:22 | PROVIDERS: PCP Family Medicine; Visit Provider Family Medicine | DX: G47.33 Obstructive sleep apnea (adult) (pediatric) (principal) | CPT/HCPCS: 94762 ==

== ENCOUNTER 2024-03-19 19:16 | Emergency (ER) | payer OTHER, SELFPAY ==
[2024-03-19 19:46] VITALS: BP 171/92; PULSE 99; RESP 17; TEMP 37; O2SAT 93; BMI 38.7
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
[2024-03-19 23:54] VITALS: BP 137/78; PULSE 78; RESP 16; O2SAT 98
== END 2024-03-20 00:23 | disposition left against medical advice (07) ==
PROVIDERS: Emergency Provider Family Medicine; PCP Family Medicine
DX: Z53.21 Procedure and treatment not carried out due to patient leaving prior to being seen by health care provider (principal)
CPT/HCPCS: 70450; 72125

== ENCOUNTER → 2024-09-29 13:23 | Outpatient (BNVA) | payer BC, SELFPAY | PROVIDERS: PCP Family Medicine | DX: J12.9 Viral pneumonia, unspecified (principal); J44.9 Chronic obstructive pulmonary disease, unspecified | CPT/HCPCS: 71046 ==

== ENCOUNTER → 2024-11-17 13:35 | Outpatient (BNVA) | payer OTHER, SELFPAY | PROVIDERS: PCP Family Medicine; Visit Provider Family Medicine | DX: I10 Essential (primary) hypertension (principal); E66.01 Morbid (severe) obesity due to excess calories; Z68.41 Body mass index [BMI] 40.0-44.9, adult | CPT/HCPCS: 80053; 80061; 83036; 84439; 84443; 85025 ==

== ENCOUNTER 2024-12-23 09:52 | Outpatient (CLI) | payer OTHER, SELFPAY ==
--- NOTE | 2024-12-23 10:00 | CT_ITS ---
WS: [id number] LDCT LUNG CANCER SCREENING TECHNIQUE: Noncontrast CT of the chest with coronal and sagittal reformatted images. CLINICAL INFORMATION: lung screening COMPARISON: None. DLP: 123.51 mGy.cm DIvol: Mean CTDIvol: 2.90 (mGy) All CT scans at [facility] use at least one of these dose optimization techniques: automated exposure control; mA and/or kV adjustment per patient size (includes targeted exams where dose is matched to clinical indication); or iterative reconstruction. FINDINGS: Calcified nodule RIGHT upper lobe. Calcified granuloma RIGHT lower lobe laterally. Few tiny nodules in the RIGHT lower lobe. No suspicious pulmonary parenchymal abnormalities. Aortic calcification. Coronary calcification. No mediastinal or hilar lymphadenopathy. Calcified RIGHT hilar and subcarinal lymphadenopathy. No axillary lymphadenopathy. Adrenal glands are normal. Splenic granulomas. Small esophageal hiatal hernia. Cholecystectomy clips. Mild thoracic kyphosis. CT/CT lung screening [id number] IMPRESSION: LUNG-RADS: 2-Benign Appearance or Behavior FOLLOW UP: 12 Month: Continue annual screening with LDCT
== END 2024-12-23 09:53 | disposition home or self-care (01) ==
PROVIDERS: PCP Family Medicine; Visit Provider Family Medicine
DX: Z12.2 Encounter for screening for malignant neoplasm of respiratory organs (principal); F17.219 Nicotine dependence, cigarettes, with unspecified nicotine-induced disorders
CPT/HCPCS: 71271

== ENCOUNTER → 2025-03-08 11:11 | Outpatient (BNVA) | payer OTHER, SELFPAY | PROVIDERS: PCP Family Medicine; Visit Provider Family Medicine | DX: E11.9 Type 2 diabetes mellitus without complications (principal) | CPT/HCPCS: 80048; 83036 ==